=== PATIENT | male | born 1985 | race Caucasian/White ===

== ENCOUNTER 2019-06-02 14:44 | Emergency (ER) | payer MEDICAID, SELFPAY ==
[2019-06-02 14:45] VITALS: BP 163/85; PULSE 119; RESP 18; TEMP 36.4; O2SAT 100; BMI 23.1
--- NOTE | 2019-06-02 15:24 | EKG12_ITS ---
Test Reason : COUGH Blood Pressure : / mmHG Vent. Rate : 092 BPM Atrial Rate : 092 BPM P-R Int : 130 ms QRS Dur : 092 ms QT Int : 342 ms P-R-T Axes : 072 026 053 degrees QTc Int : 422 ms Normal sinus rhythm Normal ECG Confirmed by SERGIO GUTIERREZ, ROSALBA ([id number]), general expeditor NESTOR VACA ([id number]) on 06/04/2019 9:38:11 AM Referred By: BB Confirmed By:ROSALBA HILL MD
--- NOTE | 2019-06-02 15:25 | ED.DCSUM_ITS ---
History of Present Illness Chief Complaint: General Illness Informant: Patient Onset: Days - 4 Context: Gradual Onset Timing: Intermittent Quality: discomfort Location: mid-chest and throughout mid-abd Current Severity: Mild Maximum Severity: Moderate Worsened by: lying down. also gets it after exertion/activity. Relieved by: sitting up Associated Symptoms: nausea at times Narrative: Patient presents with symptoms he has had before. He states he is having lower abdominal discomfort, it is suprapubic and also throughout the middle of his abdomen up into his epigastrium. However now he is having chest discomfort with it as well. The upper abdominal discomfort and chest discomfort are present when he lies down supine. They go away when he sits up. He has them a little now. They are nonexertional nonpleuritic. Some occasional nausea. Feels a little short of breath when he lies down but that gets better when he sits up too. No coughing, no fevers, no recent travel out of the area, no known exposure to person infected with coronavirus. He has urinary frequency but no dysuria, discharge, hematuria. He states he has been drinking Gatorade lately but he does not think enough to justify the urinary frequency. He denies any pain in his back. No radiation of the chest discomfort into jaw, arms, or elsewhere. He is healthy and does not use drugs. He has had some nasal congestion. Past Medical History - Allergies and Home Meds Allergies/Adverse Reactions: Allergies No Known Allergies Allergy (Verified 06/02/19 14:47) Primary Care Physician: NOT,DEFINED [NON-STAFF] - Past Medical History: None Smoking Status: Current every day smoker Alcohol: None Drugs: None Review of Systems General: Denies: Chills, Fever, Sweats Eyes: Denies: Visual changes - bilaterally, Diplopia ENT: Reports: Rhinorrhea - And congestion. Denies: Bilateral ear pain, Sore throat Cardiovascular: Denies: Chest pain, Palpitations Respiratory: Reports: Dyspnea, Orthopnea. Denies: Cough, Dyspnea on exertion Gastrointestinal: Reports: Abdominal pain, Nausea. Denies: Vomiting, Diarrhea, Melena, Hematochezia Genitourinary: Reports: Frequency. Denies: Dysuria, Hematuria Musculoskeletal: Denies: Neck pain, Back pain, Swelling, Extremity Pain Skin: Denies: Rash, Wounds Neurological: Denies: Headache, Weakness, Numbness Physical Exam Vital Signs/Narrative: Vital Signs Temp Pulse Resp BP Pulse Ox 06/02/19 14:45 97.5 F L 119 H 18 163/85 H 100 Inital Vital Signs reviewed: Yes General: Well nourished, Well developed, No Acute Distress Head: Normocephalic, Atraumatic Eyes: Perrl, EOMI ENT: Moist mucous membranes, No rhinorrhea Neck: Supple, Nontender, No lymphadenopathy, No JVD Cardiovascular: Regular rate, Regular rhythm, No murmurs. Negative for: Tachycardia Respiratory: No distress, CTA bilaterally, Chest nontender Abdomen: Soft, Nondistended, Normal bowel sounds, Tender - mild, suprapubic and epigastric. Negative for: Guarding, Rebound tenderness Back: Nontender, Normal Inspection. Negative for: CVA tenderness Extremities: Nontender, No edema. Negative for: Calf Tenderness Skin: Normal color, No rash, No Trauma Neurological: Alert, Oriented x3, Cranial nerves II-XII grossly intact, Normal Strength, Normal Sensation, Normal Gait Psychological: Normal affect, Normal Mood Diagnostic/Tx/Re-eval Impressions Chest X-Ray 06/02/19 15:38 IMPRESSION: Normal x-ray examination of the chest. Electronically Signed: Ernesto Fung MD at 16:01 EDT , Service support , 06/02/19 15:38 Chest 1 View (Portable) [RAD] Stat Laboratory Results 06/02/19 06/02/19 15:51 16:05 Urine Color Yellow Urine Clarity Clear Urine pH 6.5 Ur Specific [place] 1.015 Urine Protein Negative Urine Glucose (UA) Normal Urine Ketones Negative Urine Occult Blood Negative Urine Nitrite Negative Urine Bilirubin Negative Urine Urobilinogen 1 H Ur Leukocyte Esterase Negative Urine RBC 0 SEEN Urine WBC 0 SEEN Ur Squamous Epith Cells 0 SEEN Urine Bacteria 0 SEEN Urine Mucus 0 SEEN POC Glucose 93 - Rhythm Strip Rhythm Strip: Sinus Rhythm Rate: 92 Ectopy: None - EKG Initial EKG Interpretation: Sinus Rhythm, No Acute Injury Pattern - Medical Decision Making GI cocktail helped his chest and abdominal discomfort, arguing for GI etiology. His work-up is normal. See above. I would recommend a PPI for 2 weeks and follow-up with his doctor, and I am okay with him going back to work. He is comfortable with that plan. ED Disposition - Plan for ED Patient: Disposition: Home or Assisted Living Diagnosis: Chest pain, non-cardiac, Epigastric pain, Urinary frequency Instructions: ED Chest Pain NonCardiac Prescriptions: Omeprazole 1 cap PO DAILY #14 capsule. Prescription Printed Referrals: Doctor,Your [STAFF PHYSICIAN] -
--- NOTE | 2019-06-02 15:34 | NURSING ---
NO OLD EKGS
--- NOTE | 2019-06-02 15:38 | RAD_ITS ---
STUDY: X-RAY CHEST REASON FOR EXAM: Male, 33 years old. chest pain with sob TECHNIQUE: AP portable view of the chest. COMPARISON: None. FINDINGS: There are monitoring devices. The lungs are clear and expanded. There is no demonstrated pleural abnormality. Normal size heart. Normal mediastinum and milly. Normal visualized pulmonary arteries. Normal visualized aortic arch and descending thoracic aorta. Normal visualized thoracic spine. Normal visualized ribs, clavicles, and shoulders. There is no demonstrated abnormality of the visualized soft tissue structures of the upper abdomen. RAD/Chest 1 View (Portable) IMPRESSION: Normal x-ray examination of the chest. Electronically Signed: Ernesto Fung MD at 16:01 EDT , Service support ,
[2019-06-02] MEDS: Mag Hydrox/Al Hydrox/Simeth 30 ML UDC PO (15:48)
[2019-06-02 15:52] VITALS: BP 133/90; PULSE 97; RESP 14; O2SAT 99
[2019-06-02 16:01] LABS: Bedside Glucose 93 mg/dL (70-110)
[2019-06-02 16:12] LABS: Bacteria 0 SEEN /hpf (None Seen); Color, Urine Yellow (Yellow); Glucose, Dipstick Normal (Normal); Ketone-Dipstick Negative (Negative); Leukocyte Esterase-Dipstick Negative /ul (Negative); Mucous, Urine 0 SEEN /hpf (<or=2+); Nitrite-Dipstick Negative (Negative); Occult Blood-Urine Negative /ul (Negative); Protein-Dipstick Negative (Negative); Red Blood Cells-Urine 0 SEEN /hpf (0-5); Specific Gravity, Urine 1.015 (1.002-1.030); Squamous Epithelial Cells - UA 0 SEEN /hpf (0-5); Urine Bilirubin Dipstick Negative (Negative); Urine Clarity Clear (Clear); Urine Urobilinogen 1 mg/dl (Normal); Urine pH 6.5 (5.0 - 8.0); White Blood Cells 0 SEEN /hpf (0-5)
[2019-06-02 17:22] VITALS: BP 130/68; PULSE 88; RESP 18; O2SAT 97
== END 2019-06-02 17:23 | disposition home or self-care (01) ==
PROVIDERS: Emergency Provider Emergency Medicine
DX: R07.89 Other chest pain (principal); R10.13 Epigastric pain; R35.0 Frequency of micturition; F17.200 Nicotine dependence, unspecified, uncomplicated
CPT/HCPCS: 71045; 81001; 82962; 93005; 99282; J7030; A4216

== ENCOUNTER 2019-07-16 23:36 | Emergency (ER) | payer MEDICAID, SELFPAY ==
--- NOTE | 2019-07-16 00:35 | RAD_ITS ---
HISTORY: SOB and Chest pain EXAMINATION/TECHNIQUE: XR Chest 1 View: Portable COMPARISON: 06/02/2019 FINDINGS: Cardiac telemetry leads in place. No significant change. Normal heart size. Lung volumes appear normal. No vascular congestion, pleural effusion, or acute pulmonary infiltration. No pneumothorax. Upper thoracic mild levoscoliosis. RAD/Chest 1 View (Portable) IMPRESSION: No acute cardiopulmonary disease. No significant interval change. at 0057 Reported and signed by: Cleve Gregorio MD Electronically Signed: Cleve Gregorio, at 0:56 EDT Tel , Service support ,
[2019-07-16 23:36] VITALS: BP 140/89; PULSE 92; RESP 16; TEMP 36.3; O2SAT 100; BMI 22.5
--- NOTE | 2019-07-16 23:56 | EKG12_ITS ---
Test Reason : SOB/CP Blood Pressure : / mmHG Vent. Rate : 084 BPM Atrial Rate : 084 BPM P-R Int : 142 ms QRS Dur : 096 ms QT Int : 360 ms P-R-T Axes : 080 059 052 degrees QTc Int : 425 ms Normal sinus rhythm Incomplete right bundle branch block Borderline ECG Confirmed by RAJAN BUENO ([id number]), assistant production editor WILL HARRIS ([id number]) on 07/21/2019 1:23:21 PM Referred By: DEMOND Confirmed By:RAJAN BUENO
--- NOTE | 2019-07-17 00:13 | ED.RN ---
NO OLD EKG
[2019-07-17] MEDS: Ketorolac 15 MG/ML Vial IV (00:23)
[2019-07-17] MEDS: 0.9% Normal Saline 1,000 ML 1000 ML IV ×2 (00:24→01:03)
[2019-07-17 00:28] VITALS: O2SAT 98
[2019-07-17 00:35] LABS: Absolute Neutrophil Count 2.5 X10^3/uL (2.0-7.7); Basophil# 0.03 X10^3/uL; Basophil% 0.5 % (0-1); Eosinophil# 0.08 X10^3/uL; Eosinophils% 1.5 % (0-5); Hemoglobin 14.9 g/dL (13.0-16.5); Mean Corp Hgb Conc 33.1 g/dL (32-36); Mean Corpuscular Hgb 29.6 pg (27.0-32.0); Mean Corpuscular Volume 89.3 fL (80-94); Mean Platelet Vol. 10.8 fl (6.2-12.0); Monocyte# 0.59 X10^3/uL; Monocyte% 10.8 % (0-10); NRBC Flagged by Analyzer 0 % (0-5); Neutrophil # 2.47 X10^3/uL (2.7-7.7); Platelet Count 152 K/mm3 (150-450); RBC Distribution Width CV 11.9 % (11.6-14.6); RBC Distribution Width SD 38.4 fl (35.1-43.9); Red Blood Count 5.04 M/mm3 (4.6-6.2); White Blood Count 5.5 K/mm3 (4.4-11.0)
[2019-07-17 00:46] LABS: D-Dimer Quantitative (DVT/PE) <= 0.27 FEU/ug/m (0.27-0.49)
[2019-07-17 00:53] LABS: Anion Gap 2 (5-15); BUN 7 mg/dL (7-18); BUN/Creat Ratio 7.8 RATIO (10-20); Chloride 105 mmol/L (98-107); EST Glomerular Filtration Rate 104 mL/min (>60); Est Glom Filt Rate - Afr Amer 126 mL/min (>60); Estimated Creatinine Clearance 137.34 ml/min; Glucose 85 mg/dL (74-106); Potassium 3.7 mmol/L (3.5-5.1); Sodium Level 140 mmol/L (136-145)
--- NOTE | 2019-07-17 00:55 | ED.DCSUM_ITS ---
- ER Visit Summary Date of Service: 07/17/19 Chief Complaint: Chest pain and shortness of breath History of Present Illness: The patient is a 33 M with no primary care physician. He reports he has chest pain shortness of breath began approximately 1 week ago. He reports that it is a constant dull pain with sharp episodes. Is 9 at 10 at worst and 5-10 currently. Is worsened by smoking. Is unchanged with exertion. Is relieved by warm shower, rubbing the area, or laying on his stomach. He denies fever or cough. Does report he is had chills. He states he is been wheezing. Is not have an inhaler that he uses. Patient denies any ankle swelling or calf pain. He has no personal or family history of DVT. Physical Examination: Vitals: Stable. Afebrile. General: Well-nourished and well-developed. Head: Normocephalic atraumatic. Neck: Supple, no lymphadenopathy. No JVD. Nontender. Cardiovascular: Regular rate and rhythm. No murmurs. Respiratory: No respiratory distress. Clear to auscultation bilaterally. Abdominal: Soft, nontender, nondistended, normal bowel sounds. No guarding, rebound, or peritoneal signs. Back: Nontender. Extremities: Nontender, no edema. Skin: Normal color, no rash. Neurologic: Alert and oriented ?3. Cranial nerves II through XII are intact. Normal strength and sensation. Psych: Normal affect. Test Results: EKG is sinus at [address] changes. It is unchanged from May of this year. Troponin is negative. D-dimer is negative. Chem-7 shows a CO2 33. CBC shows 7 neutrophils 45, lymphocytes 42, monocytes of 11. Chest x-ray shows no acute disease. There is no pneumothorax. Emergency Department Course and Treatment: Patient was given a liter of normal saline. He was given Toradol IV. He is resting comfortably. Treatment Plan: Patient will be discharged with symptomatic care. Use Tylenol and/or ibuprofen for pain. He is given a prescription for an albuterol MDI. Instructed to follow-up with Dr. Camargo in 3 to 5 days if not improving. Return to the emergency department for any worsening symptoms. Disposition: To home in improved and stable condition. Impression: 1. Atypical chest pain. 2. Tobacco abuse. This note was generated with [employer] software. It may contain incorrect words, spelling, and punctuation that were not noted in review of the chart jamey or to signing ED Disposition - Plan for ED Patient: Instructions: ED Chest Pain Atypical Unkn Cause Prescriptions: Albuterol Inhaler [Ventolin Hfa] 2 puff INHALATION Q4H PRN PRN #1 inhaler PRN Reason: Wheezing Referrals: Cole Camargo MD [STAFF PHYSICIAN] - 3-5 Days if not improving
[2019-07-17 01:27] VITALS: BP 121/79; PULSE 69; RESP 12; O2SAT 100
[2019-07-17 01:47] VITALS: BP 128/80; PULSE 62; RESP 13; O2SAT 100
== END 2019-07-17 02:00 | disposition home or self-care (01) ==
LOC: ED 07-17 00:58
PROVIDERS: Emergency Provider Emergency Medicine
DX: R07.89 Other chest pain (principal); F17.200 Nicotine dependence, unspecified, uncomplicated
CPT/HCPCS: 71045; 80048; 84484; 85025; 85379; 93005; 96361; 96374; 99284; J7030

== ENCOUNTER 2019-10-12 18:59 | Emergency (ER) | payer MEDICAID, SELFPAY ==
[2019-10-12 19:00] VITALS: BP 145/96; PULSE 92; RESP 16; TEMP 36.9; O2SAT 98; BMI 23.9
--- NOTE | 2019-10-12 19:05 | ED.VIS.GEN ---
History of Present Illness Chief Complaint: Abscess Informant: Patient Narrative: 34-year-old male presents with left upper axillary pain that radiates into his pectoralis muscle. He states he has had this for years. It comes and goes. He states it does not radiate internally. 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 It seems to be worse when he is doing this. He does not have any cardiac history. He states he was seen and evaluated the last time he had this issue and had a normal work-up. Patient also states that he does not have a PCP. Past Medical History - Allergies and Home Meds Allergies/Adverse Reactions: Allergies No Known Allergies Allergy (Verified 10/12/19 19:00) Primary Care Physician: Care Physician,No Primary [Primary Care Provider] - Smoking Status: Current every day smoker Review of Systems General: Denies: Chills, Fever, Sweats Eyes: Denies: Visual changes - bilaterally, Diplopia ENT: Denies: Rhinorrhea, Sore throat Cardiovascular: Reports: Chest pain. Denies: Palpitations Genitourinary: Denies: Dysuria Musculoskeletal: Reports: Myalgias Skin: Denies: Rash, Abscess Neurological: Denies: Headache, Weakness Psych: Denies: Depression, Anxiety Physical Exam Vital Signs/Narrative: Vital Signs Temp Pulse Resp BP Pulse Ox 10/12/19 19:00 98.4 F 92 16 145/96 H 98 Inital Vital Signs reviewed: Yes General: Well nourished, No Acute Distress Head: Normocephalic, Atraumatic Eyes: Perrl, EOMI ENT: Moist mucous membranes Cardiovascular: Regular rate, Regular rhythm, - - There is some tenderness to palpation over the lateral aspect of the pectoralis muscle into the axillary region. This is reproducible by palpation and by ranging the left shoulder. There is no abscess. There is no lymphadenopathy. There is no erythema or induration. The pectoralis muscles look symmetric bilaterally. Respiratory: No distress, CTA bilaterally Abdomen: Soft Back: Nontender Skin: Normal color, No rash Neurological: Alert, Oriented x3 Psychological: Normal affect Diagnostic/Tx/Re-eval - Medical Decision Making Patient presents with tightness in the left upper shoulder he appears to have a pectoralis sprain likely from lifting up crates over his head at work. I do not believe that patient is having any cardiac chest pain. Patient is counseled to my is lifting this way or to get 2 people to help lift. Patient is also given Naprosyn and Flexeril for home. Patient was counseled he should establish with a PCP for regular healthcare maintenance. He acknowledged understanding. Patient stable discharge. Impression: 1. Pectoralis strain ED Disposition - Plan for ED Patient: Disposition: Home or Assisted Living Instructions: ED Strain Muscle Ext Prescriptions: Cyclobenzaprine HCl 10 mg PO TID PRN PRN #30 tab PRN Reason: Spasms Prescription Printed Naproxen 500 mg PO BID #30 tab Prescription Printed Referrals: Care Physician,No Primary [Primary Care Provider] -
== END 2019-10-12 20:17 | disposition home or self-care (01) ==
PROVIDERS: Emergency Provider Student in an Organized Health Care Education/Training Program
DX: S29.011A Strain of muscle and tendon of front wall of thorax, initial encounter (principal); X58.XXXA Exposure to other specified factors, initial encounter; Y93.9 Activity, unspecified; Y92.9 Unspecified place or not applicable; F17.200 Nicotine dependence, unspecified, uncomplicated
CPT/HCPCS: 99282

== ENCOUNTER 2020-04-10 16:10 | Emergency (ER) | payer MEDICAID, SELFPAY ==
[2020-04-10 16:12] VITALS: BP 138/89; PULSE 96; RESP 16; TEMP 35.8; O2SAT 95; BMI 23.7
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
--- NOTE | 2020-04-10 17:36 | ED.RN ---
LET applied to right great toe at 1735.
--- NOTE | 2020-04-10 18:20 | ED.DEP ---
ED Disposition - Plan for ED Patient: Disposition: Home or Assisted Living Instructions: ED Detached Fingernail or Toenail Prescriptions: Cephalexin [Keflex] 500 mg PO Q6 #30 cap Prescription Printed Referrals: Maik Michelle DPM [STAFF PHYSICIAN] - 3-5 Days if not improving Additional Instructions: Keflex antibiotic 1 pill 4 times a day for 1 week. This appears to be an early infection of the soft tissue. Warm soaks to the area. If not improving follow-up with the senior procurement manager Dr. Maik Michelle Tylenol and Motrin for pain
[2020-04-10] MEDS: Lidocaine 1% (20 ml mdv) 20 ML Vial 10 ML INFILT (18:39)
[2020-04-10] MEDS: Cephalexin 250 MG Capsule 500 MG PO (18:39)
--- NOTE | 2020-04-10 18:41 | ED.RN ---
DISCHARGE INSTRUCTIONS GIVEN TO AND REVIEWED WITH PATIENT, PATIENT DENIES QUESTIONS OR CONCERNS AND VOICES UNDERSTANDING OF DISCHARGE INSTRUCTIONS. PT AMBULATES OUT OF ROOM WITHOUT DIFFICULTY.
== END 2020-04-10 18:41 | disposition home or self-care (01) ==
PROVIDERS: Emergency Provider Emergency Medicine
DX: S91.211A Laceration without foreign body of right great toe with damage to nail, initial encounter (principal); V86.95XA Unspecified occupant of 3- or 4- wheeled all-terrain vehicle (ATV) injured in nontraffic accident, initial encounter; Y93.I9 Activity, other involving external motion; Y92.9 Unspecified place or not applicable; Y99.8 Other external cause status; Z72.0 Tobacco use
CPT/HCPCS: 11750; 99283

== ENCOUNTER 2021-02-18 13:43 | Emergency (ER) | payer MEDICAID, SELFPAY ==
[2021-02-18 13:43] VITALS: BP 139/77; PULSE 79; RESP 18; TEMP 36.3; O2SAT 96; BMI 24.4
--- NOTE | 2021-02-18 14:06 | EDS_ITS ---
HPI History of Present Illness Chief Complaint: Other, Pain/Inj Detail of Chief Complaint: Left chest pain and left arm numbness and tingling Informant: patient Narrative Narrative: Patient presents to the emergency department chief complaint of chest discomfort started initially 5 days ago. Patient also states that he had some numbness and tingling in his left arm. Patient for several days had some numbness and tingling in his left hand and arm intermittently. He denies any paresthesias currently. Patient still has some discomfort in his left chest that he describes as a bulge. Patient states he has had similar sensations for years off and on. Only rates pain a 7 out of 10. Patient tells me had Covid about 2 and half months ago and recovered uneventfully. No history of PE or DVT. No family history of heart disease. Prior similar symptoms: Yes PFSH PFSH Medical History no medical history Home Medications naproxen 500 mg PO BID #14 tab 02/18/21 [Rx Last Taken Unknown] Allergy/AdvReac Type Severity Reaction Status Date / Time No Known Allergies Allergy Verified 02/18/21 13:45 Social History Smoking Status: Current every day smoker tobacco type: cigarettes ROS ROS ED Constitutional Constitutional ED: Reports systems reviewed and no addt'l complaints, except as documented; Denies body ache(s), change in weight or chills Eyes Eyes: Denies acute decrease in peripheral vision, change in vision, double vision or loss of vision ENT ENT ED: Reports none; Denies ear pain, lip swelling, loss taste/smell, neck pain, otalgia or sore throat Cardiovascular Cardiovascular: Reports none, chest pain and racing heartbeat; Denies abdominal pain, chest pain with activity, leg edema, lightheadedness, palpitations, rapid heart rate or syncope Respiratory/Chest Respiratory/Chest: Reports none; Denies change in mental status, dry cough, dyspnea, hemoptysis, shortness of breath at rest or shortness of breath with exertion Gastrointestinal Gastrointestinal: Reports none; Denies abdominal pain, change in stool character, diarrhea, hematemesis, hematochezia, melena, rectal bleeding or vomiting Genitourinary Genitourinary ED: Reports none; Denies abdominal discomfort, anuria, dysuria, genital pain or polyuria Musculoskeletal Musculoskeletal: Reports none; Denies arthralgias, back pain, difficulty walking, extremity pain, muscle weakness or myalgias Integumentary Reports none; Denies abscess or rash Neurologic Neurologic: Reports none and paresthesias; Denies abnormal gait, confusion, focal weakness, frequent falls, headache(s), loss of vision, numbness, radicular pain, vertigo or weakness Psychiatric Psychiatric: Reports systems reviewed and no addt'l complaints, except as documented and none; Denies behavioral changes, confusion, difficulty concentrating, hallucinations, suicidal ideation, tactile hallucinations or visual hallucinations Endocrine Endocrinology: Denies none, cold intolerance, excessive sweating, fatigue or heat intolerance Hematologic/Lymphatic Hematologic/Lymphatic: Reports none; Denies anemia, easy bleeding or easy bruising Allergic/Immunologic Allergic/Immunologic ED: Denies as per HPI, none, lip swelling, mouth swelling, throat swelling, tongue swelling or hives EXAM Physical Exam Const Vital Signs: 02/18/21 13:43 02/18/21 14:31 02/18/21 14:41 Temperature 97.4 F L Temperature Source Temporal Pulse Rate 79 76 Respiratory Rate 18 16 Respiratory Effort Normal Non-Labored Respiratory Pattern Normal Blood Pressure 139/77 H 121/78 H Blood Pressure Mean 97 92 Pulse Ox 96 98 Oxygen Delivery Method Room Air Room Air Positive well nourished and well developed General Appearance ED: well developed and NAD HEENT Reports TM's clear and moist mucous membranes normocephalic and atraumatic; Negative for trauma or tenderness Tympanic Membrane ED: Yes TM's clear Eyes PERRL and EOMs intact bilaterally General Eye ED: Negative for pale conjunctiva or scleral icterus Neck no lymphadenopathy, supple and no JVD General: Negative for tenderness Chest Wall palpation of chest normal Chest Narrative: Mild tenderness over the left upper anterior chest wall without any masses palpated. There is no evidence of cellulitis. There is no soft emp hysema or crepitus noted. Palpation does somewhat reproduce his pain. Chest: Negative for tenderness Resp normal respiratory effort and clear to auscultation bilaterally Effort and Inspection: Negative for respiratory distress or pain with movement Auscultation: Negative for rhonchi, wheezes or diminished lung sounds Cardio regular rate, regular rhythm, S1 normal heart sound, S2 normal heart sound and no murmurs Peripheral Pulses: pulses 2+ throughout GI normal to inspection, nondistended, normoactive bowel sounds, soft to palpation, non-tender, non-distended and no masses Back/Spine no CVA tenderness and no thoracic nor lumbar tenderness Extremity normal to inspection General Extremety ED: Negative for edema General Extremity: Negative for edema Neuro oriented x3, CN's II-XII intact bilaterally, no sensory deficits noted and gait normal Sensorium / Orientation: awake, alert, oriented to person, oriented to place and oriented to time Motor Exam: strength 5/5 throughout and strength abnormal Psych mental status grossly normal Skin no rashes or lesions noted and no wounds MDM MDM MDM Narrative Medical decision making narrative: IV line established on arrival. Patient placed on a classroom monitor. Lab work-up unremarkable. At this point I suspect his chest discomfort and left arm paresthesias likely musculoskeletal. Patient's heart score is a 0. Patient will be given a prescription for naproxen. He is advised to avoid heavy lifting or repetitive motions with his left arm. 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 Lab Data Attestation: I reviewed the patient's lab results. Labs: Laboratory Results - last 24 hr 02/18/21 02/18/21 02/18/21 14:20 14:20 14:20 WBC 4.6 RBC 4.77 Hgb 14.2 Hct 43.5 MCV 91.2 MCH 29.8 MCHC 32.6 RDW Std Deviation 40.9 RDW Coeff of Susy 12.2 Plt Count 146 L MPV 11.0 Immature Gran % (Auto) 0.000 Neut % (Auto) 48.2 Lymph % (Auto) 38.4 Howard % (Auto) 10.6 H Eos % (Auto) 2.4 Baso % (Auto) 0.4 Absolute Neuts (auto) 2.2 Absolute Lymphs (auto) 1.77 Nucleated RBC % 0 D-Dimer Quant (PE/DVT) <= 0.27 Sodium 141 Potassium 3.8 Chloride 107 Carbon Dioxide 32.0 Anion Gap 2 L BUN 13 Creatinine 0.90 Estim Creat Clear Calc 131.93 Est GFR (MDRD) Af Amer 125 Est GFR (MDRD) Non-Af 103 BUN/Creatinine Ratio 14.5 Glucose 69 L Calcium 9.1 Troponin I High Sens 3 Radiography Chest X-Ray - ED: 1 View Diagnostic Testing: Clinical Impression(s) from Imaging Studies Chest X-Ray 02/18/21 14:30 IMPRESSION: Normal x-ray examination of the chest. Electronically Signed: Kt Peters MD at 14:56 EST , Service support , 1 view chest x-ray obtained interpreted by myself as no acute disease process. Radiology in agreement. EKG Initial EKG: Attestation: I personally reviewed and interpreted this EKG as follows: Comments: Sinus rhythm with ventricular rate of 77 bpm with no acute ST segment changes. Discharge Plan Triage Chief Complaint: Other, Pain/Inj ED Provider: Albino Merchant Dx/Rx/DC Orders Clinical Impression: Chest pain Instructions: ED Chest Pain, Uncertain Cause Prescriptions: New naproxen 500 MG tablet 500 mg PO BID Qty: 14 RF: 0 Primary Care Provider: Care Physician,No Primary Referrals: Patrice Tierney MD [STAFF PHYSICIAN] - 3-5 Days Care Physician,No Primary [Primary Care Provider] - Disposition Disposition: Home, Self Care
--- NOTE | 2021-02-18 14:06 | EKG12_ITS ---
Test Reason : PAIN Blood Pressure : / mmHG Vent. Rate : 077 BPM Atrial Rate : 077 BPM P-R Int : 122 ms QRS Dur : 100 ms QT Int : 360 ms P-R-T Axes : 059 046 053 degrees QTc Int : 407 ms Normal sinus rhythm Normal ECG Confirmed by SERGIO GUTIERREZ, ROSALBA ([id number]), makeup editor JOAO GUTIERREZ ([id number]) on 02/21/2021 10:48:00 AM Referred By: RU Confirmed By:ROSALBA HILL MD
[2021-02-18] MEDS: 0.9% Normal Saline 1,000 ML 150 ML IV (14:28)
[2021-02-18 14:30] LABS: Absolute Lymphocyte Count 1.77 X10^3/uL (0.83-4.51); Absolute Neutrophil Count 2.2 X10^3/uL (2.0-7.7); Basophil# 0.02 X10^3/uL; Basophil% 0.4 % (0-1); Eosinophil# 0.11 X10^3/uL; Eosinophils% 2.4 % (0-5); Hematocrit 43.5 % (40-54); Hemoglobin 14.2 g/dL (13.0-16.5); Lymphocyte # 1.77 X10^3/ul (0.83-4.51); Lymphocyte % 38.4 % (19-41); Mean Corp Hgb Conc 32.6 g/dL (32-36); Mean Corpuscular Hgb 29.8 pg (27.0-32.0); Mean Corpuscular Volume 91.2 fL (80-94); Monocyte# 0.49 X10^3/uL; Monocyte% 10.6 % (0-10); NRBC Flagged by Analyzer 0 % (0-5); Neutrophil # 2.22 X10^3/uL (2.7-7.7); Neutrophil % 48.2 % (47-70); Platelet Count 146 K/mm3 (150-450); RBC Distribution Width CV 12.2 % (11.6-14.6); RBC Distribution Width SD 40.9 fl (35.1-43.9); Red Blood Count 4.77 M/mm3 (4.6-6.2); White Blood Count 4.6 K/mm3 (4.4-11.0)
--- NOTE | 2021-02-18 14:30 | RAD_ITS ---
STUDY: X-RAY CHEST REASON FOR EXAM: Male, 35 years old. Chest pain TECHNIQUE: Single AP portable view of the chest. COMPARISON: Comparison is made with prior study dated 07/17/2019. FINDINGS: EKG electrodes are seen. The lungs are clear and expanded. There is no demonstrated pleural abnormality. Normal size heart. Normal mediastinum and milly. Normal visualized pulmonary arteries. Normal visualized aortic arch and descending thoracic aorta. Normal visualized thoracic spine. Normal visualized ribs, clavicles, and shoulders. There is no demonstrated abnormality of the visualized soft tissue structures of the upper abdomen. RAD/Chest 1 View (Portable) IMPRESSION: Normal x-ray examination of the chest. Electronically Signed: Kt Peters MD at 14:56 EST , Service support ,
[2021-02-18 14:41] VITALS: BP 121/78; PULSE 76; RESP 16; O2SAT 98
[2021-02-18 14:50] LABS: Anion Gap 2 (5-15); BUN 13 mg/dL (7-18); BUN/Creat Ratio 14.5 RATIO (10-20); Calcium,Total 9.1 mg/dL (8.5-10.1); Chloride 107 mmol/L (98-107); D-Dimer Quantitative (DVT/PE) <= 0.27 FEU/ug/m (0.27-0.49); EST Glomerular Filtration Rate 103 mL/min (>60); Est Glom Filt Rate - Afr Amer 125 mL/min (>60); Estimated Creatinine Clearance 131.93 ml/min; Glucose 69 mg/dL (74-106); Potassium 3.8 mmol/L (3.5-5.1); Sodium Level 141 mmol/L (136-145); Troponin-I HS 3 pg/mL (3.0-78.0)
[2021-02-18 15:17] VITALS: BP 120/78; PULSE 72; RESP 18; O2SAT 99
== END 2021-02-18 15:17 | disposition home or self-care (01) ==
PROVIDERS: Emergency Provider Emergency Medicine
DX: R07.9 Chest pain, unspecified (principal); R20.2 Paresthesia of skin; F17.210 Nicotine dependence, cigarettes, uncomplicated
CPT/HCPCS: 71045; 80048; 84484; 85025; 85379; 93005; 99284; A4216

== ENCOUNTER 2022-04-29 13:58 | Emergency (ER) | payer MEDICAID, SELFPAY ==
[2022-04-29 14:00] VITALS: BP 133/90; PULSE 90; RESP 16; TEMP 36.1; O2SAT 98; BMI 25.0
--- NOTE | 2022-04-29 14:21 | EDS_ITS ---
HPI <MARGO Baptiste - Last Filed: 04/29/22 14:28> History of Present Illness Chief Complaint: General Illness Narrative Narrative: 36-year-old male with no significant medical history who presents to the emergency department with multiple red bumps that appear on his body and then disappear over the last 6 months. 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 Patient states that they come and go however sometimes the redness stays for multiple weeks. Patient denies any infectious-like symptoms such as fever or chills. Patient has no history of any STD, patient is not a IV drug abuser. PFSH <MARGO Baptiste - Last Filed: 04/29/22 14:28> [facility] Medical History no medical history Home Medications NK 04/29/22 [History Last Taken Unknown] Allergy/AdvReac Type Severity Reaction Status Date / Time No Known Allergies Allergy Verified 04/29/22 13:59 Family History no significant family his Surgical History no surgical history Social History Smoking Status: Current every day smoker tobacco type: cigarettes ROS <MARGO Baptiste - Last Filed: 04/29/22 14:28> ROS ED ROS Narrative Constitutional: Negative for fever, chills, weight loss, weakness Eyes: Negative for vision loss, vision change, double vision ENT: Negative for any sore throat, ear pain, congestion Cardiovascular: Negative for any chest pain, tightness, palpitations Respiratory: Negative for any cough, sputum production, hemoptysis, dyspnea, dyspnea on exertion, orthopnea Gastrointestinal: Negative for any abdominal pain, nausea, vomiting, diarrhea, constipation, blood in stool, blood in vomit : Negative for any urinary frequency, dysuria, retention, blood in urine Muscle skeletal: Negative for any muscle joint pain, stiffness, myalgias, arthralgias, neck pain, back pain Neurological: Negative for any headache, syncope, numbness or tingling, dizziness Skin: Negative for any rashes, itching, abrasions, lacerations. Positive for intermittent areas of redness, lumps, Psychiatric: Negative for any depression, anxiety, stress, suicidal ideation, homicidal ideation Hematologic: Negative for any easy bruising, excessive bruising, easy bleeding Allergies: Negative for any eczema, hives, rash EXAM <MARGO Baptiste - Last Filed: 04/29/22 14:28> Physical Exam Narrative Exam Narrative: Vital signs reviewed. HEET: Head normocephalic atraumatic, TMs clear bilaterally. Posterior pharynx is clear, moist mucous membranes. Nares clear bilaterally. Neck: Supple with no lymphadenopathy or tenderness. No signs of meningismus, negative jolt sign. Cardiac: Regular rate and rhythm no murmurs gallops or rubs, equal peripheral pulses bilaterally. Respiratory: Lungs clear to auscultation bilaterally. No chest tenderness. Abdomen: Soft, nontender, nondistended. No abdominal bruit or pulsatile masses. No hepatosplenomegaly Extremities: No peripheral edema, no signs of gross trauma or deformity. Active full range of motion of all extremities. Neuro: Cranial nerves II through XII intact, no focal neurological deficits. Skin: Clean dry and intact with no rash, purpura, petechiae, vesicles or pustules. Patient what appears to be possible acne, pimples. There is no signs or symptoms of gross infection, deep tissue infection, abscess formation. Backs/flank: No CVA tenderness, no midline spinal tenderness, no deformity. Psych: Normal mood and affect. No SI, HI or acute psychosis. Const Vital Signs: 04/29/22 14:00 Temperature 97.0 F L Temperature Source Temporal Pulse Rate 90 Respiratory Rate 16 Blood Pressure 133/90 H Blood Pressure Mean 104 Pulse Ox 98 Oxygen Delivery Method Room Air Positive well nourished and well developed General Appearance ED: well developed <Compa Gonsales MD - Last Filed: 04/29/22 16:30> Physical Exam Const Vital Signs: 04/29/22 14:00 Temperature 97.0 F L Temperature Source Temporal Pulse Rate 90 Respiratory Rate 16 Blood Pressure 133/90 H Blood Pressure Mean 104 Pulse Ox 98 Oxygen Delivery Method Room Air MDM <MARGO Baptiste - Last Filed: 04/29/22 14:28> MDM Treatment and Re-Evaluation Narrative: Patient appears generally well. Patient is in no distress. Patient presents the emergency department with multiple lumps on his body that been ongoing for the last 6 months. Patient's physical examination is consistent with pimples. There is no evidence of suspect any abscess, rash. Differential diagnosis is abscess formation, cellulitis, contact dermatitis. However this does not look to be allergic, this appears to be pimple/acne. Patient will not be treated with any antibiotics. I did explain this to the patient. He will follow-up with dermatology. Patient is happy the plan of care. He instructed return for any worsening symptoms <Compa Gonsales MD - Last Filed: 04/29/22 16:30> [facility] Narrative Medical decision making narrative: I have personally performed a face to face assessment of the patient and have reviewed the NITHIN Note. I performed a substantive portion of the visit including all aspects of the following. My coleman findings include: History is bumps on scalp, bilateral inner thighs, and back x6 months, different areas, waxing and waning. Exam is afebrile. Vital signs noted. Nontoxic-appearing. Multiple areas of, domes and pimples in different stages of healing on back, scalp, and bilateral inner thighs, and outer. Medical Decision Making reassurance. Warm compresses. I do not feel antibiotics are indicated currently as most of the areas are isolated. Follow- up dermatology as needed. Other additions or changes: [None] Discharge Plan Triage Chief Complaint: General Illness ED Midlevel Provider: Gennaro Jackson ED Provider: Compa Gonsales Dx/Rx/DC Orders Clinical Impression: Acne, Skin pimple Instructions: Adult Acne Prescriptions: No Action NK Primary Care Provider: Care Physician,No Primary Referrals: Gauri Frazier MD [Non-Staff] - Care Physician,No Primary [Primary Care Provider] - Activity Restrictions/Additional Instructions: Please follow-up. Disposition Disposition: Home, Self Care Discharge Date/Time: 04/29/22 14:51
== END 2022-04-29 14:51 | disposition home or self-care (01) ==
LOC: ED 14:33
PROVIDERS: Emergency Provider Emergency Medicine; Visit Provider Emergency Medicine
DX: L70.9 Acne, unspecified (principal); F17.210 Nicotine dependence, cigarettes, uncomplicated
CPT/HCPCS: 99283

== ENCOUNTER 2022-05-22 12:13 | Emergency (ER) | payer MEDICAID, SELFPAY ==
[2022-05-22 12:13] VITALS: BP 142/96; PULSE 108; RESP 14; TEMP 36.9; O2SAT 99; BMI 23.7
[2022-05-22 12:22] VITALS: BP 133/89; PULSE 94; RESP 15; O2SAT 97
--- NOTE | 2022-05-22 12:37 | EX.ED.DYSGE1 ---
HPI History of Present Illness Chief Complaint: Syncope Informant: patient Onset/Context/Timing Onset: Today Context: Sudden Onset Timing: Intermittent and Lasts (Approximately 5 minutes) Quality: Lightheaded, short of breath Location: Generalized Worsened by: Nothing Relieved by: Nothing Narrative Narrative: Patient presents with a syncopal episode that occurred today. Patient states he was putting his contacts and while he was getting ready for work when he passed out. Patient states he felt lightheaded and short of breath prior to passing out. Patient states he was out for approximately 5 minutes. Patient states he woke up on the floor. Patient states he has been having some pain in his left axilla. Patient denies any chest pain. Patient admits to nausea but denies any vomiting. Patient denies any palpitations. PFSH PFSH Medical History no medical history no medical history Home Medications NK 04/29/22 [History Last Taken Unknown] Allergy/AdvReac Type Severity Reaction Status Date / Time No Known Allergies Allergy Verified 05/22/22 12:27 Surgical History no surgical history no surgical history Social History Smoking Status: Current every day smoker tobacco type: cigarettes ROS ROS ED Constitutional Constitutional ED: Denies chills or fever(s) Eyes Eyes: Reports blurry vision; Denies change in vision ENT ENT ED: Denies rhinorrhea or sore throat Cardiovascular Cardiovascular: Denies chest pain or palpitations Respiratory/Chest Respiratory/Chest: Reports dyspnea; Denies cough Gastrointestinal Gastrointestinal: Reports nausea; Denies vomiting Genitourinary Genitourinary ED: Denies dysuria or hematuria Musculoskeletal Musculoskeletal: Denies back pain or neck pain Integumentary Denies abscess or rash Neurologic Neurologic: Denies headache(s) or weakness Allergic/Immunologic Allergic/Immunologic ED: Denies mouth swelling or urticaria EXAM Physical Exam Const Vital Signs: 05/22/22 12:13 05/22/22 12:22 05/22/22 12:23 Temperature 98.4 F Temperature Source Temporal Pulse Rate 108 H 94 Pulse Rate [Lying] Pulse Rate [Sitting (for 1 minute prior to obtaining)] Pulse Rate [Standing (for 1 minute prior to obtaining)] Respiratory Rate 14 15 Respiratory Effort Normal Non-Labored Respiratory Pattern Normal Blood Pressure 142/96 H 133/89 H Blood Pressure [Lying] Blood Pressure [Sitting (for 1 minute prior to obtaining)] Blood Pressure [Standing (for 1 minute prior to obtaining)] Blood Pressure Mean 111 103 Blood Pressure Mean [Lying] Blood Pressure Mean [Sitting (for 1 minute prior to obtaining)] Blood Pressure Mean [Standing (for 1 minute prior to obtaining)] Pulse Ox 99 97 Oxygen Delivery Method Room Air Room Air 05/22/22 14:09 05/22/22 14:17 05/22/22 15:10 Temperature Temperature Source Pulse Rate 19 L Pulse Rate [Lying] 69 Pulse Rate [Sitting (for 1 minute prior to obtaining)] 67 Pulse Rate [Standing (for 1 minute prior to obtaining)] 92 Respiratory Rate 73 H Respiratory Effort Respiratory Pattern Blood Pressure 122/88 H Blood Pressure [Lying] 132/75 H Blood Pressure [Sitting (for 1 minute prior to obtaining)] 133/88 H Blood Pressure [Standing (for 1 minute prior to obtaining)] 131/95 H Blood Pressure Mean 99 Blood Pressure Mean [Lying] 94 Blood Pressure Mean [Sitting (for 1 minute prior to obtaining)] 103 Blood Pressure Mean [Standing (for 1 minute prior to obtaining)] 107 Pulse Ox Oxygen Delivery Method Room Air 05/22/22 16:26 Temperature Temperature Source Pulse Rate 66 Pulse Rate [Lying] Pulse Rate [Sitting (for 1 minute prior to obtaining)] Pulse Rate [Standing (for 1 minute prior to obtaining)] Respiratory Rate 14 Respiratory Effort Respiratory Pattern Blood Pressure 128/78 H Blood Pressure [Lying] Blood Pressure [Sitting (for 1 minute prior to obtaining)] Blood Pressure [Standing (for 1 minute prior to obtaining)] Blood Pressure Mean 94 Blood Pressure Mean [Lying] Blood Pressure Mean [Sitting (for 1 minute prior to obtaining)] Blood Pressure Mean [Standing (for 1 minute prior to obtaining)] Pulse Ox 97 Oxygen Delivery Method Room Air Positive well nourished and well developed General Appearance ED: well developed HEENT Reports moist mucous membranes Neck supple and no JVD Resp normal respiratory effort and clear to auscultation bilaterally Cardio regular rate, regular rhythm and no murmurs GI normal to inspection, nondistended, normoactive bowel sounds and non-tender Palpation: soft Extremity normal to inspection General Extremety ED: Negative for edema or tenderness General Extremity: Negative for edema Neuro oriented x3, CN's II-XII intact bilaterally and no sensory deficits noted Sensorium / Orientation: alert Motor Exam: strength 5/5 throughout Psych mental status grossly normal Skin no rashes or lesions noted MDM MDM MDM Narrative Medical decision making narrative: Differential diagnosis includes cardiac ischemia, cardiac dysrhythmia, vasovagal syncope, dehydration, and electrolyte abnormality. EKG will be obtained to assess for cardiac dysrhythmia and cardiac ischemia. CBC will be obtained to assess for leukocytosis and anemia. Basic metabolic profile will be obtained to assess for electrolyte abnormality and renal function. High-sensitivity troponin will be obtained to assess for cardiac ischemia. 2-hour repeat high-sensitivity troponin will be obtained to assess for ongoing cardiac ischemia. Chest x-ray will be obtained to assess for pneumonia and pneumothorax. Lab Data Attestation: I reviewed the patient's lab results. Lab results narrative: CBC was reviewed and was within normal limits. Basic metabolic profile was reviewed and was within normal limits. Initial high-sensitivity troponin was reviewed and was normal at 3. 2-hour repeat high-sensitivity troponin was reviewed and was normal at 3. Labs: Laboratory Results - last 24 hr 05/22/22 05/22/22 05/22/22 14:10 14:10 16:30 WBC 5.8 RBC 5.51 Hgb 16.0 Hct 49.6 MCV 90.0 MCH 29.0 MCHC 32.3 RDW Std Deviation 39.6 RDW Coeff of Susy 11.9 Plt Count 177 MPV 11.3 Immature Gran % (Auto) 0.300 Neut % (Auto) 65.2 Lymph % (Auto) 23.4 [place] % (Auto) 8.0 Eos % (Auto) 2.4 Baso % (Auto) 0.7 Absolute Neuts (auto) 3.8 Absolute Lymphs (auto) 1.35 Nucleated RBC % 0 Sodium 140 Potassium 4.2 Chloride 105 Carbon Dioxide 32.0 Anion Gap 3 L BUN 7 Creatinine 0.80 Estim Creat Clear Calc 151.27 Est GFR (MDRD) Af Amer 141 Est GFR (MDRD) Non-Af 116 BUN/Creatinine Ratio 8.7 L Glucose 110 H Calcium 9.6 Troponin I High Sens 3 3 Radiography Diagnostic Testing: Clinical Impression(s) from Imaging Studies Chest X-Ray 05/22/22 14:13 IMPRESSION: Normal x-ray examination of the chest. Electronically Signed: Kt Peters MD at 14:31 EDT , Portable 1 view chest x-ray was obtained. On my independent interpretation, lung andrade are clear. There is normal cardiac silhouette. Bony thorax is normal. There is no acute process noted. Radiologist also interpreted the x-ray and agrees. EKG Initial EKG: Attestation: I personally reviewed and interpreted this EKG as follows: Interpretation: Sinus Rhythm (67) and No Acute Injury Pattern Comments: EKG was obtained. On my independent interpretation, it showed a normal sinus rhythm with a rate of 67. [place] interval, QRS interval, and QTc intervals were all normal. [place] was normal. There are no acute ST or T wave changes. Prior EKG tracings: available for review Prior: Unchanged (02/18/2021) Treatment and Re-Evaluation :: Patient was given aspirin here. Smoking cessation was discussed. Patient was advised of his findings. Patient is feeling better on reevaluation. Patient was instructed to follow-up with his primary care physician in 5 to 7 days. Patient was advised that he may need further outpatient testing to determine the cause of his syncope. Patient understands and is agreeable with the plan. All questions were answered. Discharge Plan Triage Chief Complaint: Syncope ED Provider: Patrice Pedroza Dx/Rx/DC Orders Clinical Impression: Syncope and collapse, Tobacco use Instructions: ED Fainting, Uncertain Cause Prescriptions: No Action NK Primary Care Provider: Care Physician,No Primary Referrals: Cole Camargo MD [Med Staff - Foundation Stage Teacher] - 5-7 Days Care Physician,No Primary [Primary Care Provider] - Disposition Disposition: Home, Self Care
--- NOTE | 2022-05-22 13:14 | CM.ED ---
Social Work Note Referral Source: Case Find Referral Reason: no PCP SW met with patient and introduced herself and role as [facility] Shoe Fitter. Patient was seated on hospital bed and agreeable to speak with SW. SW inquired about patient's insurance and current PCP. Patient verified insurance and reported having a PCP at [facility], however, he has only seen that PCP once. SW inquired about his interest in a list of PCPs, patient reported being interested. SW provided patient with a list of PCPs accepting new patients in [place] in network with his insurance. Patient was receptive towards list and voices no other needs at this time. SW remains available if needs arise. Rozina Moran COMMUNICATIONS TOWER CLIMBER, ANGELINE
--- NOTE | 2022-05-22 13:45 | EKG12_ITS ---
Test Reason : Blood Pressure : / mmHG Vent. Rate : 067 BPM Atrial Rate : 067 BPM P-R Int : 142 ms QRS Dur : 100 ms QT Int : 356 ms P-R-T Axes : 065 045 048 degrees QTc Int : 376 ms Normal sinus rhythm Normal ECG Confirmed by KRISHAN GUTIERREZ, VIVIAN ([id number]), photograph editor JOAO GUTIERREZ ([id number]) on 05/23/2022 8:43:04 AM Referred By: PILAR Confirmed By:VIVIAN NICKERSON MD
[2022-05-22] MEDS: Aspirin 81 MG TAB.CHEW 324 MG PO (13:58)
--- NOTE | 2022-05-22 14:13 | RAD_ITS ---
STUDY: X-RAY CHEST REASON FOR EXAM: Male, 36 years old. Chest pain TECHNIQUE: Single AP portable view of the chest. COMPARISON: Comparison is made with prior study of July 17, 2019. FINDINGS: EKG electrodes are seen. The lungs are clear and expanded. There is no demonstrated pleural abnormality. Normal size heart. Normal mediastinum and milly. Normal visualized pulmonary arteries. Normal visualized aortic arch and descending thoracic aorta. Normal visualized thoracic spine. Normal visualized ribs, clavicles, and shoulders. There is no demonstrated abnormality of the visualized soft tissue structures of the upper abdomen. RAD/Chest 1 View (Portable) IMPRESSION: Normal x-ray examination of the chest. Electronically Signed: Kt Peters MD at 14:31 EDT ,
[2022-05-22 14:17] VITALS: BP 122/88; PULSE 19; RESP 73
[2022-05-22 14:19] LABS: Absolute Lymphocyte Count 1.35 X10^3/uL (0.83-4.51); Absolute Neutrophil Count 3.8 X10^3/uL (2.0-7.7); Basophil# 0.04 X10^3/uL; Basophil% 0.7 % (0-1); Eosinophil# 0.14 X10^3/uL; Eosinophils% 2.4 % (0-5); Hematocrit 49.6 % (40-54); Lymphocyte # 1.35 X10^3/ul (0.83-4.51); Lymphocyte % 23.4 % (19-41); Mean Corp Hgb Conc 32.3 g/dL (32-36); Mean Platelet Vol. 11.3 fl (6.2-12.0); Monocyte# 0.46 X10^3/uL; NRBC Flagged by Analyzer 0 % (0-5); Neutrophil # 3.77 X10^3/uL (2.7-7.7); Neutrophil % 65.2 % (47-70); Platelet Count 177 K/mm3 (150-450); RBC Distribution Width CV 11.9 % (11.6-14.6); RBC Distribution Width SD 39.6 fl (35.1-43.9); Red Blood Count 5.51 M/mm3 (4.6-6.2); White Blood Count 5.8 K/mm3 (4.4-11.0)
[2022-05-22 14:37] LABS: Anion Gap 3 (5-15); BUN 7 mg/dL (7-18); BUN/Creat Ratio 8.7 RATIO (10-20); Calcium,Total 9.6 mg/dL (8.5-10.1); Chloride 105 mmol/L (98-107); EST Glomerular Filtration Rate 116 mL/min (>60); Est Glom Filt Rate - Afr Amer 141 mL/min (>60); Estimated Creatinine Clearance 151.27 ml/min; Glucose 110 mg/dL (74-106); Potassium 4.2 mmol/L (3.5-5.1); Sodium Level 140 mmol/L (136-145); Troponin-I HS (w/2H Reflex) 3 pg/mL (3.0-78.0)
[2022-05-22 15:10] VITALS: BP 131/95; BP 132/75; BP 133/88; PULSE 67; PULSE 69; PULSE 92
[2022-05-22 16:15] LABS: Reflex Troponin-HS? (from REC) Y
[2022-05-22 16:26] VITALS: BP 128/78; PULSE 66; RESP 14; O2SAT 97
[2022-05-22 16:52] LABS: Troponin-I HS 3 pg/mL (3.0-78.0)
[2022-05-22 17:08] VITALS: BP 132/84; PULSE 70; RESP 12; O2SAT 98
== END 2022-05-22 17:29 | disposition home or self-care (01) ==
PROVIDERS: Emergency Provider Emergency Medicine; Visit Provider Emergency Medicine
DX: R55 Syncope and collapse (principal); F17.210 Nicotine dependence, cigarettes, uncomplicated
CPT/HCPCS: 71045; 80048; 84484; 85025; 93005; 99285; A4216

== ENCOUNTER 2022-09-17 21:14 | Emergency (ER) | payer MEDICAID, SELFPAY ==
[2022-09-17 21:15] VITALS: BP 138/99; PULSE 83; RESP 16; TEMP 36.4; O2SAT 99; BMI 25.7
--- NOTE | 2022-09-17 22:36 | EDS_ITS ---
HPI History of Present Illness Chief Complaint: Rash Informant: patient Narrative Narrative: Patient is a 37-year-old male who reports no significant past medical history. He states over the last 5 to 7 days he has had a rash along the right upper arm/shoulder region. He states the rash is pruritic in nature. He denies any new exposures. He states that there is been no progression of the rash down his arm or back. He states that the rash has not worsened but also has not improved and secondary to this he is concerned that he may need medications to help resolve it and he comes in for evaluation. PFSH PFSH Medical History no medical history Home Medications desonide 0.05 % topical cream 1 applic topical TID PRN skin irritation #60 grams 09/17/22 [Rx Last Taken Unknown] sulfamethoxazole 800 mg-trimethoprim 160 mg tablet (Bactrim DS) 1 tab PO BID 10 days #20 tabs 09/17/22 [Rx Last Taken Unknown] Allergy/AdvReac Type Severity Reaction Status Date / Time No Known Allergies Allergy Verified 09/17/22 21:15 Social History Smoking Status: Current every day smoker tobacco type: cigarettes ROS ROS ED Constitutional Constitutional ED: Denies chills or fever(s) ENT ENT ED: Denies sore throat Cardiovascular Cardiovascular: Denies chest pain Respiratory/Chest Respiratory/Chest: Denies cough or dyspnea Gastrointestinal Gastrointestinal: Denies abdominal pain, diarrhea, nausea or vomiting Genitourinary Genitourinary ED: Denies dysuria Musculoskeletal Musculoskeletal: Denies myalgias Integumentary Reports rash Neurologic Neurologic: Denies headache(s) Hematologic/Lymphatic Hematologic/Lymphatic: Denies easy bleeding or easy bruising EXAM Physical Exam Const Vital Signs: 09/17/22 21:15 Temperature 97.6 F L Temperature Source Temporal Pulse Rate 83 Respiratory Rate 16 Blood Pressure 138/99 H Blood Pressure Mean 112 Pulse Ox 99 Positive well nourished and well developed General Appearance ED: well developed HEENT Reports moist mucous membranes HEENT Narrative: No tongue or lip swelling no oral lesions no airway edema or compromise Eyes PERRL and EOMs intact bilaterally Neck supple Resp normal respiratory effort and clear to auscultation bilaterally Cardio regular rate and regular rhythm Extremity normal to inspection Extremity Narrative: Neuro oriented x3 and CN's II-XII intact bilaterally Sensorium / Orientation: alert Psych mental status grossly normal Skin Skin Narrative: Along the right lateral shoulder patient has erythematous blanchable and pustule punctate lesions grouped in a cluster most consistent with a staph or strep infection. There is no obvious abscess formation. No lymphangitic streaking. MDM MDM MDM Narrative Medical decision making narrative: Patient presented to the ER with stable vitals and reported a rash present in the right upper arm for approximately 1 week with no known exposures. He report ed the rash had not greatly increased or resolved during the past 5 to 7 days. He does not have oral lesions or signs of respiratory distress or signs of systemic infection and therefore there is no need for imaging or testing. The cluster nature of the rash coupled with its erythema and pustule formation is concerning for infection. There is no obvious shingles presentation no cellulitis or abscess formation. Therefore at this time he can be placed on oral antibiotics secondary to the presumed staph/strep infection and also topical steroid cream secondary to the pruritic nature of it. However as there were no signs of respiratory distress or systemic infection is otherwise safe for discharge History & Record Review Discussion w/independent historian: Patient Discharge Plan Triage Chief Complaint: Rash ED Provider: Jp Koroma Dx/Rx/DC Orders Clinical Impression: Streptococcal skin infection Instructions: ED Folliculitis Prescriptions: New sulfamethoxazole-trimethoprim [Bactrim DS] 800-160 mg tablet 1 tab PO BID 10 Days Qty: 20 0RF desonide 0.05 % cream 1 applic topical TID PRN (Reason: skin irritation) Qty: 60 0RF Primary Care Provider: Care Physician,No Primary Referrals: Cole Camargo MD [Med Staff - Motor Coach Supervisor] - Care Physician,No Primary [Primary Care Provider] - Activity Restrictions/Additional Instructions: Your rash appears to be a soft tissue skin infection therefore take the antibiotic as directed to resolve this. Use the topical steroid cream to help with further itch and if you have any further concerns or worsening of symptoms return for repeat evaluation Disposition Disposition: Home, Self Care Discharge Date/Time: 09/17/22 22:56
[2022-09-17] MEDS: Smz/Tmp Ds Tablet 1 TABLET PO (22:53)
== END 2022-09-17 22:56 | disposition home or self-care (01) ==
LOC: ED 22:45
PROVIDERS: Emergency Provider Emergency Medicine; Visit Provider Emergency Medicine
DX: A49.1 Streptococcal infection, unspecified site (principal); F17.210 Nicotine dependence, cigarettes, uncomplicated
CPT/HCPCS: 99283

== ENCOUNTER 2023-03-21 16:08 | Emergency (ER) | payer SELFPAY ==
[2023-03-21 16:08] VITALS: BP 126/92; PULSE 80; RESP 16; TEMP 36.2; O2SAT 99; BMI 26.8
--- NOTE | 2023-03-21 16:13 | RAD_ITS ---
INDICATION: INJURY/PAIN EXAMINATION/TECHNIQUE: X-RAY - LEFT XR Ankle 2 Views 3 VIEWS COMPARISON: No relevant prior comparison study available FINDINGS: SOFT TISSUES: Soft tissue swelling about the ankle, more pronounced medially, along the distal tibial metaphysis. No radiopaque foreign body. BONES/JOINTS: No acute fracture or subluxation.. Normal alignment. Preservation of the joint space.. No sclerotic or destructive changes observed. Moderate plantar calcaneal enthesophyte. RAD/Ankle min 3 Views IMPRESSION: No fracture or malalignment. Electronically Signed: Phoenix Rivera MD at 16:56 EST ,
[2023-03-21 18:29] VITALS: PULSE 89; RESP 16; O2SAT 98
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
--- OUTSIDE RECORDS SUMMARY | 2023-03-21 18:43 | XMS RPT_ITS | CCD ---
Author Name Unknown Address [address] [place] [address] Organization [facility] Care Team Providers Care Paper Colorer Name Role Phone CARLOS HOLCOMB DO Admitting Unavailable DIDCARLOS CARRASQUILLO DO Attending Unavailable NO, DOCTOR ON Referring Unavailable CARLOS HOLCOMB DO Primary Care Unavailable NO, DOCTOR ON Consulting Unavailable METCALFLAYNE Sethi Admitting Unavailable LAYNE METCALF Attending Unavailable LAYNE METCALF Primary Care Unavailable NO, DOCTOR ON Consulting Unavailable NO, DOCTOR ON Referring Unavailable Pravin Zuniga MD Primary Care Provider Pravin Zuniga MD Primary Care Provider SIMONA BELTRAN Attending Unavailable GLENN, PRAVIN Navdeep Primary Care Unavailable LUISAMPCARLINE, PRAVIN Navdeep Primary Care Unavailable BELTRAN, SIMONA Referring Unavailable BELTRANSIMONA Attending Unavailable GLENN PRAVIN Navdeep Primary Care Unavailable BELTRAN, SIMONA Referring Unavailable LUISAMPCARLINE, PRAVIN Navdeep Primary Care Unavailable BELTRAN, SIMNOA Referring Unavailable TALAMPCARLINE, PRAVIN D Primary Care Unavailable CARLOS TAMAYO Attending Unavailable BELTRANSIMONA Referring Unavailable Medications Current Medications Medication Drug Class(es) Dates Sig (Normalized) Sig (Original) perflutren lipid microspheres 1.3 mL in NaCl (PF) 0.9% 10 mL injection (DEFINITY) (1 source) Start: 01-09-2022 End: 04-10-2023 perflutren lipid microspheres 1.3 mL in NaCl (PF) 0.9% 10 mL injection (DEFINITY) 125 ml sodium chloride 9 mg/ml prefilled syringe (1 source) Start: 01-09-2022 End: 04-10-2023 sodium chloride 0.9 % (flush) 10 mL (BD POSIFLUSH) Completed/Discontinued Medications Medication Drug Class(es) Dates Sig (Normalized) Sig (Original) 200 actuat albuterol 0.09 mg/actuat dry powder inhaler (3 sources) beta2-Adrenergic Agonist Start: 07-17-2019 End: 10-11-2021 albuterol sulfate 90 mcg/actuation breath activated powder inhaler EVERY 4 HOURS NEEDED 0 07/17/2019 10/11/2021 Discontinued Problems Active Problems Problem Classification Problem Date Documented Da te Episodic/Chronic Nonspecific chest pain (6 sources) Non-cardiac chest pain; Translations: [Other chest pain] Onset: 06-09-2021 06-09-2021 Episodic Residual codes; unclassified (2 sources) Tobacco user; Translations: [Tobacco use] Onset: 01-09-2022 Episodic Substance-related disorders (3 sources) Smoker; Translations: [Nicotine dependence, unspecified, uncomplicated] Onset: 08-11-2021 Chronic Past or Other Problems Problem Classification Problem Date Documented Da te Episodic/Chronic Abdominal pain (5 sources) Epigastric pain; Translations: [Epigastric pain] Onset: 06-09-2021 06-09-2021 Episodic Cardiac dysrhythmias (5 sources) Palpitations; Translations: [Palpitations] Onset: 08-11-2021 Episodic Immunizations and screening for infectious disease (8 sources) Patient encounter status; Translations: [Encounter for immunization] Onset: 08-11-2021 Episodic Results Test Name Value Interpretation Reference Range Facil ity Vital Signs Date Time Vital Sign Value Performing Clinician Kevin small 01-09-2022 11:43-0500 Body weight 85.73 kg Carlos Tamayo MD Work Phone: [facility] 01-09-2022 11:43-0500 Diastolic blood pressure 92 mm[Hg] Carlos Tamayo MD Work Phone: [facility] 01-09-2022 11:43-0500 Heart rate 102 /min Carlos Tamayo MD Work Phone: [facility] 01-09-2022 11:43-0500 SaO2% (BldA) [Mass fraction] 97 % Carlos Tamayo MD Work Phone: [facility] 01-09-2022 11:43-0500 Systolic blood pressure 148 mm[Hg] Carlos Tamayo MD Work Phone: [facility] 10-11-2021 13:24-0400 Body weight 84.37 kg Simona Beltran [employer]ADER.[employer]ING INST[employer]ER Work Phone: [facility] 10-11-2021 13:24-0400 Diastolic blood pressure 82 mm[Hg] Simona Beltran [employer]OTATO GRADER.[employer] ROOFING INSTALLER Work Phone: [facility] 10-11-2021 13:24-0400 Heart rate 72 /min Simona Beltran POTATO GRADER.[employer] ROOFING INSTALLER Work Phone: [facility] 10-11-2021 13:24-0400 Respiratory rate 16 /min Simona Beltran POTATO GRADER.CO[employer] ROOFING INSTALLER Work Phone: [facility] 10-11-2021 13:24-0400 Systolic blood pressure 126 mm[Hg] Simona Beltran POTATO GRADER.CO[employer] ROOFING INSTALLER Work Phone: [facility] 08-11-2021 08:51-0400 Diastolic blood pressure 82 mm[Hg] Simona Beltran POTATO GRADER.CO[employer] ROOFING INSTALLER Work Phone: [facility] 08-11-2021 08:51-0400 Heart rate 80 /min Simona Beltran POTATO GRADER.CO[employer] ROOFING INSTALLER Work Phone: [facility] 08-11-2021 08:51-0400 Systolic blood pressure 122 mm[Hg] Simona Beltran POTATO GRADER.CO[employer] ROOFING INSTALLER Work Phone: [facility] 08-11-2021 08:45-0400 Body height 190.5 cm Simona Beltran POTATO GRADER.CO[employer] ROOFING INSTALLER Work Phone: [facility] 08-11-2021 08:45-0400 Body weight 79.83 kg Simona Beltran POTATO GRADER.CO[employer] ROOFING INSTALLER Work Phone: [facility] 08-11-2021 08:45-0400 Respiratory rate 16 /min Simona Beltran POTATO GRADER.CO[employer] ROOFING INSTALLER Work Phone: [facility] 08-11-2021 08:45-0400 SaO2% (BldA) [Mass fraction] 99 % Simona Beltran POTATO GRADER.CO[employer] ROOFING INSTALLER Work Phone: [facility] Encounters Encounter Date Encounter Type Care Provider Facility Start: 01-09-2022 End: 01-09-2022 ambulatory PRAVIN ZUNIGA Facility:[facility] Start: 01-09-2022 End: 01-09-2022 Patient encounter procedure Carlos Tamayo MD Work Phone: Cardiology Procedures Date Procedure Procedure Detail Performing Clinician Start: 10-11-2021 Ecg routine ecg w/le ast 12 lds w/i&r [facility] Provider Start: 08-11-2021 Adult depression screening assessment Simona Beltran APRN.COOL ROOFING INSTALLER Work Phone: Plan of Treatment Date Care Activity Detail Author Start: 08-11-2022 Adult depression scr eening assessment DEPRESSION SCREENING [facility] Start: 03-06-2022 Urine microalbumin profile DTAP,TDAP ,TD (1 - Tdap) [facility] Payers Date Payer Category Payer Medicaid [employer] [employer] [id number] 2019-Present [phone] [place] [id number] Medicaid [id number] 2019 Medicaid [id number] 2017 Unknown [id number] 1987 Unknown [id number] 1987 Unknown [id number] Worker's Compensation [id number] Social History Date Type Detail Facility Start: 08-11-2006 End: 10-11-2021 Tobacco smoking status NHIS Smokes tobacco daily [facility] Work Phone: Start: 08-11-2006 History of tobacco use Cigarette Smo ker [facility] Work Phone: Start: 08-11-2021 End: 10-11-2021 Cigarettes smoked current (pack per day) - Reported 1 [facility] Start: 08-11-2021 End: 10-11-2021 Tobacco use and exposure Smokeless tobacco non-user [facility] Work Phone: Start: 08-11-2021 End: 01-09-2022 Alcohol intake Current drinker of alcohol (finding) [facility] Start: 08-11-2021 History SDOH Alcohol Comment occasionally [facility] Start: 1985 Sex Assigned At Not on file [facility] Start: 08-01-2021 End: 01-09-2022 Exposure to SARS-CoV-2 (event) Not sure [facility] Work Phone: Clinical Notes 08-11-2021 to 01-09-2022 Patient InstructionsDavid Gennaro Tamayo MD - 01/09/2022 11:20 AM ESTTelephone Encounter - Rachele Gee [facility] - 12/19/2021 5:02 PM EDTTelephone Encounter - Rachele Gee [facility] - 12/19/2021 3:31 PM EDT Note Date & Type Note Facility 01-09-2022 Note HNO ID: [id number] Author: Carlos Tamayo MD Service: ? Author Type: Physician Type: Progress Notes Filed: 01/09/2022 12:13 PM Note Text: [facility]OLOGY Cardiology ([facility]) [address] [facility] [id number] OUTPATIENT VISIT DATE 01/07/2022 PRIMARY CARE PHYSICIAN: Pravin Zuniga [address] [place] [id number] REFERRING PHYSICIAN: Simona Beltran [address] [facility] [place] [address] CHIEF COMPLAINT: Palpitations and chest pain HISTORY OF PRESENT ILLNESS: Mr. Morales is a 36 year old gentleman referred by Imer Beltran APRN for evaluation of palpitations abnormal Holter monitor. Results of my consultation be communicated to patient's primary care physician and Imer Beltran APRN via shared medical record. Patient describes frequent episodes of racing heartbeats. They are usually brief and self-limited. There seems to be no exacerbating relieving factors. He also notices his heart pounds in the evening hours when he lays down in bed. He feels like his heart is thumping. He has good functional capacity. He walks almost everywhere he goes. He puts in close to 10 miles a day. He walks to and from work. 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 Unfortunately, he continues to smoke a pack of cigarettes a day. He admits to high caffeine intake and use of energy drinks. He reports having episodes of left arm numbness and tingling. He tells me they will persist for 2 days at a time. 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 He has not had reproducible chest pain, pressure, or You aching with exertion. PAST MEDICAL HISTORY Diagnosis Date NEGATIVE HISTORY OF PAST SURGICAL HISTORY Procedure Laterality Date NONE SOCIAL HISTORY Social History Tobacco Use Smoking status: Every Day Packs/day: 1.00 Years: 14.00 Pack years: 14.00 Types: Cigarettes Start date: 08/11/2006 Smokeless tobacco: Never Substance Use Topics Alcohol use: Yes Comment: occasionally Drug use: Never FAMILY HISTORY Problem Relation Age of Onset No Known Problems Mother Cancer Father Cancer Maternal Grandmother Cancer Paternal Grandmother ALLERGIES: ALLERGIES No Known Allergies MEDICATIONS: omeprazole (PRILOSEC) 20 mg capsule Take 1 capsule by mouth daily before breakfast. (Patient not taking: Reported on 01/09/2022) nicotine (NICODERM) 21 mg/24 hr Apply 1 Patch as directed every 24 hours. x 6 weeks then start 14 mg patch. Do not smoke when wearing patch (Patient not taking: Reported on 10/11/2021) nicotine (NICODERM) 14 mg/24 hr Apply 1 Patch as directed every 24 hours for 14 days. x 2 weeks then start 7 mg patch. Do not smoke when wearing patch nicotine (NICODERM) 7 mg/24 hr Apply 1 Patch as directed every 24 hours. Do not smoke when wearing patch (Patient not taking: Reported on 10/11/2021) REVIEW OF SYSTEMS: Review of Systems Constitutional: Negative for chills, fever, malaise/fatigue and weight loss. HENT: Negative for hearing loss and sore throat. Eyes: Negative for blurred vision and double vision. Respiratory: Negative. Cardiovascular: Positive for palpitations. Gastrointestinal: Negative. Genitourinary: Negative for dysuria, frequency, hematuria and urgency. Musculoskeletal: Negative. Skin: Negative. Neurological: Negative for dizziness, seizures, loss of consciousness, weakness and headaches. Endo/Heme/Allergies: Negative for environmental allergies. Does not bruise/bleed easily. Psychiatric/Behavioral: Negative for depression. Nervous/anxious: .smdiag. PHYSICAL EXAMINATION: BP 148/92 Pulse 102 Wt 189 lb (85.7kg) SpO2 97% General: Young somewhat disheveled gentleman sitting appears comfortable no apparent distress. He is alert and oriented x3 HEENT: Carotid upstrokes are brisk bilaterally without bruits no JVD appreciated. Pulmonary: Lungs are clear no rales, wheezes, rhonchi Cardiovascular: Normal S1, S2 with regular rate and rhythm. No murmurs, rubs, or gallops Extremities: Warm, well-perfused, no lower extremity edema. 2+ distal pulses CARDIOVASCULAR MEDICINE TESTING: Zio Monitor 10/11/2021 Patient had a min HR of 45 bpm, max HR of 193 bpm, and avg HR of 85 bpm. Predominant underlying rhythm was Sinus Rhythm. Slight P wave morphology changes were noted. 3 Supraventricular Tachycardia runs occurred, the run with the fastest interval lasting 5 beats with a max rate of 193 bpm, the longest lasting 9 beats with an avg rate of 158 bpm. Second Degree AV Block-Mobitz I (Wenckebach) was present. Isolated SVEs were rare (<1.0%), SVE Couplets were rare (<1.0%), and no SVE Triplets were present. Isolated VEs were rare (<1.0%), VE Couplets were rare (<1.0%), and no VE Triplets were present. Inverted QRS complexes possibly due to inverted placement of device. IMPRESSION: (more content not included)... [facility] 01-09-2022 Instructions Carlos Tamayo MD - 01/09/2022 12:01 PM EST We are ordering an echocardiogram documented in this encounter [facility] 01-09-2022 History of Presen t illness Narrative Images from the original note were not included. [facility]Y Cardiology ([facility]) [address] [facility] [id number] OUTPATIENT VISIT DATE 01/07/2022 PRIMARY CARE PHYSICIAN: Pravin Zuniga [address] [place] [address] REFERRING PHYSICIAN: Simona Beltran [address] [facility] [place] [address] CHIEF COMPLAINT: Palpitations and chest pain HISTORY OF PRESENT ILLNESS: Mr. Morales is a 36 year old gentleman referred by Imer Beltran APRN for evaluation of palpitations abnormal Holter monitor. Results of my consultation be communicated to patient's primary care physician and Imer Beltran APRN via shared medical record. Patient describes frequent episodes of racing heartbeats. They are usually brief and self-limited. There seems to be no exacerbating relieving factors. He also notices his heart pounds in the evening hours when he lays down in bed. He feels like his heart is thumping. He has good functional capacity. He walks almost everywhere he goes. He puts in close to 10 miles a day. He walks to and from work. 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 Unfortunately, he continues to smoke a pack of cigarettes a day. He admits to high caffeine intake and use of energy drinks. He reports having episodes of left arm numbness and tingling. He tells me they will persist for 2 days at a time. 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 He has not had reproducible chest pain, pressure, or You aching with exertion. PAST MEDICAL HISTORY Diagnosis Date NEGATIVE HISTORY OF PAST SURGICAL HISTORY Procedure Laterality Date NONE SOCIAL HISTORY Social History Tobacco Use Smoking status: Every Day Packs/day: 1.00 Years: 14.00 Pack years: 14.00 Types: Cigarettes Start date: 08/11/2006 Smokeless tobacco: Never Substance Use Topics Alcohol use: Yes Comment: occasionally Drug use: Never FAMILY HISTORY Problem Relation Age of Onset No Known Problems Mother Cancer Father Cancer Maternal Grandmother Cancer Paternal Grandmother ALLERGIES: ALLERGIES No Known Allergies MEDICATIONS: omeprazole (PRILOSEC) 20 mg capsule Take 1 capsule by mouth daily before breakfast. (Patient not taking: Reported on 01/09/2022) nicotine (NICODERM) 21 mg/24 hr Apply 1 Patch as directed every 24 hours. x 6 weeks then start 14 mg patch. Do not smoke when wearing patch (Patient not taking: Reported on 10/11/2021) nicotine (NICODERM) 14 mg/24 hr Apply 1 Patch as directed every 24 hours for 14 days. x 2 weeks then start 7 mg patch. Do not smoke when wearing patch nicotine (NICODERM) 7 mg/24 hr Apply 1 Patch as directed every 24 hours. Do not smoke when wearing patch (Patient not taking: Reported on 10/11/2021) REVIEW OF SYSTEMS: Review of Systems Constitutional: Negative for chills, fever, malaise/fatigue and weight loss. HENT: Negative for hearing loss and sore throat. Eyes: Negative for blurred vision and double vision. Respiratory: Negative. Cardiovascular: Positive for palpitations. Gastrointestinal: Negative. Genitourinary: Negative for dysuria, frequency, hematuria and urgency. Musculoskeletal: Negative. Skin: Negative. Neurological: Negative for dizziness, seizures, loss of consciousness, weakness and headaches. Endo/Heme/Allergies: Negative for environmental allergies. Does not bruise/bleed easily. Psychiatric/Behavioral: Negative for depression. Nervous/anxious: .smdiag. PHYSICAL EXAMINATION: BP 148/92 Pulse 102 Wt 189 lb (85.7kg) SpO2 97% General: Young somewhat disheveled gentleman sitting appears comfortable no apparent distress. He is alert and oriented x3 HEENT: Carotid upstrokes are brisk bilaterally without bruits no JVD appreciated. Pulmonary: Lungs are clear no rales, wheezes, rhonchi Cardiovascular: Normal S1, S2 with regular rate and rhythm. No murmurs, rubs, or gallops Extremities: Warm, well-perfused, no lower extremity edema. 2+ distal pulses CARDIOVASCULAR MEDICINE TESTING: Zio Monitor 10/11/2021 Patient had a min HR of 45 bpm, max HR of 193 bpm, and avg HR of 85 bpm. Predominant underlying rhythm was Sinus Rhythm. Slight P wave morphology changes were noted. 3 Supraventricular Tachycardia runs occurred, the run with the fastest interval lasting 5 beats with a max rate of 193 bpm, the longest lasting 9 beats with an avg rate of 158 bpm. Second Degree AV Block-Mobitz I (Wenckebach) was present. Isolated SVEs were rare (<1.0%), SVE Couplets were rare (<1.0%), and no SVE Triplets were present. Isolated VEs were rare (<1.0%), VE Couplets were rare (<1.0%), and no VE Triplets were present. Inverted QRS complexes possibly due to inverted placement of device. IMPRESSION: Mr. Morales is a 36 year old who presents for evaluation of abnormal Holter monitor and atypical chest pain symptoms. PLAN AND RECOMMENDATIONS: 1. Palpitations - ICD9: 785.1, ICD10: R00.2 (primary diagnosis) I reviewed his Holter monitor results with him during the office visit. His SVT episodes are insignificant and infrequent. Patient would benefit from lifestyle modification including avoidance of high energy drinks and decrease caffeine input. I also recommended smoking cessation for further improvements in his palpitations and overall cardiovascular risk reduction. No indication for initiation of therapy at this time. He reports frequent evaluations in the emergency room for these ongoing symptoms. Help reassure, I have ordered a 2D echocardiogram. - ECHO - PERFLUTREN LIPID MICROSPHERES 1.1 MG/ML INJECTION IN NS 10 ML - SODIUM CHLORIDE 0.9 % (FLUSH) INJECTION SYRINGE 2. Non-cardiac chest pain - ICD9: 786.59, ICD10: R07.89 Atypical symptoms not reproducible with exertion. Patient has above average functional capacity for his age. I recommended lifestyle modification as noted above. - ECHO - PERFLUTREN LIPID MICROSPHERES 1.1 MG/ML INJECTION IN NS 10 ML - SODIUM CHLORIDE 0.9 % (FLUSH) INJECTION SYRINGE 3. Tobacco abuse - ICD9: 305.1, ICD10: Z72.0 - Cessation encouraged. - Physiologic and physical aspects of tobacco addiction as well as strategies for quitting were discussed. - Counseling was given focusing on the harmful effects of this addiction especially given the patient's medical condition(s) which will be worsened because of the chemicals in tobacco. Carlos Tamayo MD documented in this encounter [facility] 12-19-2021 Miscellaneous Notes Patient notified of providers message and verbalized understanding. Recommend continue with current treatments and keep appt with cardiology. Let us know if any concerning or severe symptoms. Patient notified of providers message and verbalized understanding. Patient states medication may be helping a little but continue to have chest on occasion. Zio revealed primarily sinus rhythm, rare ectopics. Check to see if feeling improved with PPI and lifestyle measures. Has appt cardiology scheduled. documented in this encounter [facility] 10-11-2021 Note HNO ID: [id number] Author: Simona Beltran APRN.CNS Service: ? Author Type: Nurse Specialist Type: Progress Notes Filed: 10/11/2021 3:01 PM Note Text: SUBJECTIVE: HEPATITIS B(1 of 3 - 3-dose series) Never done COVID-19 VACCINE(1) Never done PNEUMOCOCCAL(1 - PCV) Never done HPI Jose Morales is a 35 year old male. PMH significant for ACTIVE PROBLEM LIST Non-Cardiac Chest Pain Epigastric Pain HPI excerpted from previous visit: Presents today to establish care with [facility] PCP. Previous PCP: states none, can't recall who he has seen ER/Hospitalization: [facility] ER 2020 Outside records: none He reports not consistently seeing any provider. Has gone to [facility] emergency department for palpitations and work-up was negative per his report. Notes occasionally not feeling well at home, feeling palpitations that feel like a rapid fluttering in the left side of his chest, dizziness and lightheadedness discomfort to both arms that passes without intervention and shortness of breath when this occurs. Notes this is intermittent and none currently. Notes he is felt better since decreasing caffeine intake. Notes he was drinking 2 pots of coffee per day, has decreased down to 1. Notes also drinking caffeinated beverages during the day. Eats fast food routinely and smokes. Notes he feels better when cutting back on all of these things. Notes he checks his blood pressure at home when not feeling well and systolic blood pressures have had readings of 140-180. Currently without symptoms. No reported limitations of walking a flat surface or taking stairs, no report of inability to complete daily activities. Today notes he has been trying to decrease caffeine intake. Has decreased from 2 pots of coffee daily down to one half pot on the weekend and 1 cup during the week. Does have energy drinks during weekdays but this is rare. Notes that he tried to quit smoking, decreased down to half pack but now back up to 1 pack daily. Notes that he continues to note palpitations throughout the day most of the day. States he mostly notices when he lays down at night. Feels like rapid or strong beats. He reports left axillary discomfort helped with IcyHot, often notices this when he has palpitations, not sure if this is related to his palpitations. Without report of chest pain shortness of breath dizziness lightheadedness edema presyncope or syncope today. Review of Systems Constitutional: Negative. Cardiovascular: Positive for palpitations. Objective BP 126/82 Pulse 72 Resp 16 Wt 84.4 kg (186 lb) BMI 23.25 kg/m? Physical Exam Vitals and nursing note reviewed. Constitutional: Appearance: Normal appearance. HENT: Head: Normocephalic and atraumatic. Eyes: Conjunctiva/sclera: Conjunctivae normal. Neck: Thyroid: No thyromegaly. Vascular: Normal carotid pulses. No JVD. Cardiovascular: Rate and Rhythm: Normal rate and regular rhythm. Pulses: Carotid pulses are 2+ on the right side and 2+ on the left side. Radial pulses are 2+ on the right side and 2+ on the left side. Heart sounds: Normal heart sounds. Pulmonary: Effort: Pulmonary effort is normal. Breath sounds: Normal breath sounds. Abdominal: General: Bowel sounds are normal. Palpations: Abdomen is soft. Musculoskeletal: Right lower leg: No edema. Comments: Left axillary discomfort with raising arm, no mass noted, no crepitus, no decreased range of motion Skin: General: Skin is warm and dry. Neurological: General: No focal deficit present. Mental Status: He is alert and oriented to person, place, and time. ALLERGIES No Known Allergies MEDICATIONS omeprazole (PRILOSEC) 20 mg capsule Take 1 capsule by mouth daily before breakfast. nicotine (NICODERM) 21 mg/24 hr Apply 1 Patch as directed every 24 hours. x 6 weeks then start 14 mg patch. Do not smoke when wearing patch (Patient not taking: Reported on 10/11/2021) nicotine (NICODERM) 14 mg/24 hr Apply 1 Patch as directed every 24 hours for 14 days. x 2 weeks then start 7 mg patch. Do not smoke when wearing patch nicotine (NICODERM) 7 mg/24 hr Apply 1 Patch as directed every 24 hours. Do not smoke when wearing patch (Patient not taking: Reported on 10/11/2021) PAST MEDICAL HISTORY Diagnosis Date NEGATIVE HISTORY OF PAST SURGICAL HISTORY Procedure Laterality Date NONE Social History Tobacco Use Smoking status: Every Day Packs/day: 1.00 Years: 14.00 Pack years: 14.00 Types: Cigarettes Start date: 08/11/2006 Smokeless tobacco: Never Substance Use Topics Alcohol use: Yes Comment: occasionally Drug use: Never FAMILY HISTORY Problem Relation Age of Onset No Known Problems Mother Cancer Father Cancer Maternal Grandmother Cancer Paternal Grandmother Component Latest Ref Rng AND Units 08/11/2021 WBC 3.70 - 11.00 k/uL 4.88 RBC 4.20 - 6.00 m/uL 4.98 Hemoglobin 13.0 - 17.0 g/dL 14.5 Hematocrit 39. (more content not included)... [facility] 10-11-2021 Note HNO ID: [id number] Author: Naeem De MD Service: Interventional Cardiology Author Type: Physician Type: Procedures Filed: 12/12/2021 3:57 PM Note Text: Patient Name: Jose Morales : 1985 Ordering Provider: SIMONA BELTRAN Indication: R00.2 Palpitations Type of Monitor: Extended Monitoring-Zio Patch Enrollment Dates: 10/11/2021-10/24/2021 [facility] 10-11-2021 Nurse Note EVENT MONITOR DISPOSABLE PATCH INSTRUCTIONS [facility]: [id number] Skin prepped and cleansed with alcohol Patch secured to prepped area Monitor Activated Serial #: [id number] Patient Instructed: Prescribed order timeframe Bathing guidelines Usage of event button and diary documentation Return of monitor at the end of prescribed order Call with problems [phone] or [phone] ext. [phone] Patient expresses a good understanding of instructions Rachele Gee LPN documented in this encounter [facility] 10-11-2021 Instructions Simona Beltran APRN.ZAKIYA - 10/11/2021 1:47 PM EDT Continue to decrease caffeine intake Avoid fast foods as much as possible. Work on discontinuing smoking. Take omeprazole daily for 2-3 months documented in this encounter [facility] 10-11-2021 History of Presen t illness Narrative SUBJECTIVE: HEPATITIS B(1 of 3 - 3-dose series) Never done COVID-19 VACCINE(1) Never done PNEUMOCOCCAL(1 - PCV) Never done HPI Jose Morales is a 35 year old male. PMH significant for ACTIVE PROBLEM LIST Non-Cardiac Chest Pain Epigastric Pain HPI excerpted from previous visit: Presents today to establish care with [facility] PCP. Previous PCP: states none, can't recall who he has seen ER/Hospitalization: [facility] ER 2020 Outside records: none He reports not consistently seeing any provider. Has gone to [facility] emergency department for palpitations and work-up was negative per his report. Notes occasionally not feeling well at home, feeling palpitations that feel like a rapid fluttering in the left side of his chest, dizziness and lightheadedness discomfort to both arms that passes without intervention and shortness of breath when this occurs. Notes this is intermittent and none currently. Notes he is felt better since decreasing caffeine intake. Notes he was drinking 2 pots of coffee per day, has decreased down to 1. Notes also drinking caffeinated beverages during the day. Eats fast food routinely and smokes. Notes he feels better when cutting back on all of these things. Notes he checks his blood pressure at home when not feeling well and systolic blood pressures have had readings of 140-180. Currently without symptoms. No reported limitations of walking a flat surface or taking stairs, no report of inability to complete daily activities. Today notes he has been trying to decrease caffeine intake. Has decreased from 2 pots of coffee daily down to one half pot on the weekend and 1 cup during the week. Does have energy drinks during weekdays but this is rare. Notes that he tried to quit smoking, decreased down to half pack but now back up to 1 pack daily. Notes that he continues to note palpitations throughout the day most of the day. States he mostly notices when he lays down at night. Feels like rapid or strong beats. He reports left axillary discomfort helped with IcyHot, often notices this when he has palpitations, not sure if this is related to his palpitations. Without report of chest pain shortness of breath dizziness lightheadedness edema presyncope or syncope today. Review of Systems Constitutional: Negative. Cardiovascular: Positive for palpitations. Objective BP 126/82 Pulse 72 Resp 16 Wt 84.4 kg (186 lb) BMI 23.25 kg/m Physical Exam Vitals and nursing note reviewed. Constitutional: Appearance: Normal appearance. HENT: Head: Normocephalic and atraumatic. Eyes: Conjunctiva/sclera: Conjunctivae normal. Neck: Thyroid: No thyromegaly. Vascular: Normal carotid pulses. No JVD. Cardiovascular: Rate and Rhythm: Normal rate and regular rhythm. Pulses: Carotid pulses are 2+ on the right side and 2+ on the left side. Radial pulses are 2+ on the right side and 2+ on the left side. Heart sounds: Normal heart sounds. Pulmonary: Effort: Pulmonary effort is normal. Breath sounds: Normal breath sounds. Abdominal: General: Bowel sounds are normal. Palpations: Abdomen is soft. Musculoskeletal: Right lower leg: No edema. Comments: Left axillary discomfort with raising arm, no mass noted, no crepitus, no decreased range of motion Skin: General: Skin is warm and dry. Neurological: General: No focal deficit present. Mental Status: He is alert and oriented to person, place, and time. ALLERGIES No Known Allergies MEDICATIONS omeprazole (PRILOSEC) 20 mg capsule Take 1 capsule by mouth daily before breakfast. nicotine (NICODERM) 21 mg/24 hr Apply 1 Patch as directed every 24 hours. x 6 weeks then start 14 mg patch. Do not smoke when wearing patch (Patient not taking: Reported on 10/11/2021) nicotine (NICODERM) 14 mg/24 hr Apply 1 Patch as directed every 24 hours for 14 days. x 2 weeks then start 7 mg patch. Do not smoke when wearing patch nicotine (NICODERM) 7 mg/24 hr Apply 1 Patch as directed every 24 hours. Do not smoke when wearing patch (Patient not taking: Reported on 10/11/2021) PAST MEDICAL HISTORY Diagnosis Date NEGATIVE HISTORY OF PAST SURGICAL HISTORY Procedure Laterality Date NONE Social History Tobacco Use Smoking status: Every Day Packs/day: 1.00 Years: 14.00 Pack years: 14.00 Types: Cigarettes Start date: 08/11/2006 Smokeless tobacco: Never Substance Use Topics Alcohol use: Yes Comment: occasionally Drug use: Never FAMILY HISTORY Problem Relation Age of Onset No Known Problems Mother Cancer Father Cancer Maternal Grandmother Cancer Paternal Grandmother Component Latest Ref Rng & Units 08/11/2021 WBC 3.70 - 11.00 k/uL 4.88 RBC 4.20 - 6.00 m/uL 4.98 Hemoglobin 13.0 - 17.0 g/dL 14.5 Hematocrit 39.0 - 51.0 % 45.8 MCV 80.0 - 100.0 fL 92.0 MCH 26.0 - 34.0 pg 29.1 MCHC 30.5 - 36.0 g/dL 31.7 RDW-CV 11.5 - 15.0 % 12.1 Platelet Count 150 - 400 k/uL 188 MPV 9.0 - 12.7 fL 11.4 Neut% % 49.5 Abs Neut (ANC) 1.45 - 7.50 k/uL 2.42 Lymph% % 36.3 Abs Lymph 1.00 - 4.00 k/uL 1.77 Jasper% % 10.9 Abs Jasper <0.87 k/uL 0.53 Eosin% % 2.7 Abs Eosin <0.46 k/uL 0.13 Baso% % 0.4 Abs Baso <0.11 k/uL <0.03 Immature Gran % % 0.2 IMMATURE GRANS (ABS) <0.10 k/uL <0.03 NRBC /100 WBC 0.0 Absolute nRBC <0.01 k/uL <0.01 DTYPE Auto Protein, Total 6.3 - 8.0 g/dL 7.3 Albumin 3.9 - 4.9 g/dL 4.5 Calcium 8.5 - 10.2 mg/dL 9.7 Bilirubin, Total 0.2 - 1.3 mg/dL 0.9 Alkaline Phosphatase 38 - 113 U/L 62 AST 14 - 40 U/L 20 ALT 10 - 54 U/L 25 Glucose 74 - 99 mg/dL 86 BUN 9 - 24 mg/dL 11 Creatinine 0.73 - 1.22 mg/dL 0.79 Sodium 136 - 144 mmol/L 139 Potassium 3.7 - 5.1 mmol/L 4.2 Chloride 97 - 105 mmol/L 100 CO2 22 - 30 mmol/L 31 (H) Anion Gap 9 - 18 mmol/L 8 (L) eGFR >=60 mL/min/1.73m 120 Cholesterol, Total <200 mg/dL 120 Triglyceride <150 mg/dL 110 HDL Cholesterol >39 mg/dL 23 (L) Non HDL Cholesterol <130 mg/dL 97 Fasting Time hrs 12 VLDL Cholesterol <30 mg/dL 22 TC:HDL Ratio <5.10 5.22 (H) LDL Cholesterol <100 mg/dL 75 LDL:HDL Ratio <2.54 3.26 (H) HIV 12 Combo (Ag/Ab) Nonreactive Nonreactive HIV 1/2 Ab HIV Interpretation TSH 0.270 - 4.200 mIU/L 1.070 Hep C Antibody IA Negative Negative ASSESSMENT/PLAN: 1. Palpitations - ICD9: 785.1, ICD10: R00.2 (primary diagnosis) Endorse heart healthy recommendations previously provided: Decrease /discontinue caffeine intake, avoid fast foods, smoking cessation endorsed. EKG completed in office today showed normal sinus rhythm without ectopy or ischemic changes ventricular rate 61 bpm MD interval 134 ms QRS duration 98 ms QTC 390 ms - ECG COMPLETE - OUTSIDE VENDOR CARDIAC OUTPATIENT EXTENDED RHYTHM RECORDING (WITHOUT TELEMETRY) 2. Smoker - ICD9: 305.1, ICD10: F17.200 - Cessation encouraged. Has not tried nicotine patches yet Labs completed at previous visit were within normal limits. To complete Ziopatch x 14 days Trial omeprazole 2-3 mos to see if symptoms improve 6-[address] Botello - to establish iSmona Beltran APRN.COOL ROOFING INSTALLER Medical Decision Making: Problems: Moderate: New problem with uncertain prognosis Data: Unique test(s) ordered: 2 Risk: Moderate: Drug management Medical Decision Making Level: 4 - Moderate documented in this encounter [facility] 08-25-2021 Miscellaneous Notes Patient notified of lab results and verbalized understanding Recent labwork was in acceptable range. Component Latest Ref Rng & Units 08/11/2021 WBC 3.70 - 11.00 k/uL 4.88 RBC 4.20 - 6.00 m/uL 4.98 Hemoglobin 13.0 - 17.0 g/dL 14.5 Hematocrit 39.0 - 51.0 % 45.8 MCV 80.0 - 100.0 fL 92.0 MCH 26.0 - 34.0 pg 29.1 MCHC 30.5 - 36.0 g/dL 31.7 RDW-CV 11.5 - 15.0 % 12.1 Platelet Count 150 - 400 k/uL 188 MPV 9.0 - 12.7 fL 11.4 Neut% % 49.5 Abs Neut (ANC) 1.45 - 7.50 k/uL 2.42 Lymph% % 36.3 Abs Lymph 1.00 - 4.00 k/uL 1.77 Jasper% % 10.9 Abs Jasper <0.87 k/uL 0.53 Eosin% % 2.7 Abs Eosin <0.46 k/uL 0.13 Baso% % 0.4 Abs Baso <0.11 k/uL <0.03 Immature Gran % % 0.2 IMMATURE GRANS (ABS) <0.10 k/uL <0.03 NRBC /100 WBC 0.0 Absolute nRBC <0.01 k/uL <0.01 DTYPE Auto Protein, Total 6.3 - 8.0 g/dL 7.3 Albumin 3.9 - 4.9 g/dL 4.5 Calcium 8.5 - 10.2 mg/dL 9.7 Bilirubin, Total 0.2 - 1.3 mg/dL 0.9 Alkaline Phosphatase 38 - 113 U/L 62 AST 14 - 40 U/L 20 ALT 10 - 54 U/L 25 Glucose 74 - 99 mg/dL 86 BUN 9 - 24 mg/dL 11 Creatinine 0.73 - 1.22 mg/dL 0.79 Sodium 136 - 144 mmol/L 139 Potassium 3.7 - 5.1 mmol/L 4.2 Chloride 97 - 105 mmol/L 100 CO2 22 - 30 mmol/L 31 (H) Anion Gap 9 - 18 mmol/L 8 (L) eGFR >=60 mL/min/1.73m 120 Cholesterol, Total <200 mg/dL 120 Triglyceride <150 mg/dL 110 HDL Cholesterol >39 mg/dL 23 (L) Non HDL Cholesterol <130 mg/dL 97 Fasting Time hrs 12 VLDL Cholesterol <30 mg/dL 22 TC:HDL Ratio <5.10 5.22 (H) LDL Cholesterol <100 mg/dL 75 LDL:HDL Ratio <2.54 3.26 (H) HIV 12 Combo (Ag/Ab) Nonreactive Nonreactive HIV 1/2 Ab HIV Interpretation TSH 0.270 - 4.200 mIU/L 1.070 Hep C Antibody IA Negative Negative documented in this encounter [facility] 08-11-2021 Note HNO ID: [id number] Author: Simona Beltran APRN.COOL ROOFING INSTALLER Service: ? Author Type: Nurse Specialist Type: Progress Notes Filed: 08/11/2021 10:42 AM Note Text: SUBJECTIVE: COVID-19 VACCINE(1) Never done PNEUMOCOCCAL(1 - PCV) Never done HEPATITIS C SCREENING Never done HIV SCREENING Never done HPI Jose Morales is a 35 year old male. PMH significant for ACTIVE PROBLEM LIST Non-Cardiac Chest Pain Epigastric Pain Presents today to establish care with [facility] PCP. Previous PCP: states none, can't recall who he has seen ER/Hospitalization: [facility] ER 2020 Outside records: none He reports not consistently seeing any provider. Has gone to [facility] emergency department for palpitations and work-up was negative per his report. Notes occasionally not feeling well at home, feeling palpitations that feel like a rapid fluttering in the left side of his chest, dizziness and lightheadedness discomfort to both arms that passes without intervention and shortness of breath when this occurs. Notes this is intermittent and none currently. Notes he is felt better since decreasing caffeine intake. Notes he was drinking 2 pots of coffee per day, has decreased down to 1. Notes also drinking caffeinated beverages during the day. Eats fast food routinely and smokes. Notes he feels better when cutting back on all of these things. Notes he checks his blood pressure at home when not feeling well and systolic blood pressures have had readings of 140-180. Currently without symptoms. No reported limitations of walking a flat surface or taking stairs, no report of inability to complete daily activities. Review of Systems Constitutional: Negative. Cardiovascular: Positive for palpitations. Neurological: Positive for dizziness and light-headedness. Objective BP 122/82 Pulse 80 Resp 16 Ht 190.5 cm (6' 3 ) Wt 79.8 kg (176 lb) SpO2 99% BMI 22.00 kg/m? Physical Exam Vitals and nursing note reviewed. Constitutional: Appearance: Normal appearance. HENT: Head: Normocephalic and atraumatic. Eyes: Conjunctiva/sclera: Conjunctivae normal. Neck: Thyroid: No thyromegaly. Vascular: Normal carotid pulses. No JVD. Cardiovascular: Rate and Rhythm: Normal rate and regular rhythm. Pulses: Carotid pulses are 2+ on the right side and 2+ on the left side. Radial pulses are 2+ on the right side and 2+ on the left side. Heart sounds: Normal heart sounds. Pulmonary: Effort: Pulmonary effort is normal. Breath sounds: Normal breath sounds. Abdominal: General: Bowel sounds are normal. Palpations: Abdomen is soft. Musculoskeletal: Right lower leg: No edema. Skin: General: Skin is warm and dry. Neurological: General: No focal deficit present. Mental Status: He is alert and oriented to person, place, and time. ALLERGIES No Known Allergies MEDICATIONS nicotine (NICODERM) 21 mg/24 hr Apply 1 Patch as directed every 24 hours. x 6 weeks then start 14 mg patch. Do not smoke when wearing patch nicotine (NICODERM) 14 mg/24 hr Apply 1 Patch as directed every 24 hours for 14 days. x 2 weeks then start 7 mg patch. Do not smoke when wearing patch nicotine (NICODERM) 7 mg/24 hr Apply 1 Patch as directed every 24 hours. Do not smoke when wearing patch albuterol sulfate 90 mcg/actuation breath activated powder inhaler EVERY 4 HOURS NEEDED PAST MEDICAL HISTORY Diagnosis Date - NEGATIVE HISTORY OF PAST SURGICAL HISTORY Procedure Laterality Date - NONE Social History Tobacco Use - Smoking status: Current Every Day Smoker Packs/day: 1.00 Years: 14.00 Pack years: 14.00 Types: Cigarettes Start date: 08/11/2006 - Smokeless tobacco: Never Used Substance Use Topics - Alcohol use: Yes Comment: occasionally - Drug use: Never FAMILY HISTORY Problem Relation Age of Onset - No Known Problems Mother - Cancer Father - Cancer Maternal Grandmother - Cancer Paternal Grandmother ASSESSMENT/PLAN: 1. Palpitations - ICD9: 785.1, ICD10: R00.2 (primary diagnosis) Currently without symptoms. Notes drinking excessive amounts of caffeinated beverages and smoking along with fast food, has felt improved since reducing or discontinuing these. Recommend labs today, consult cardiology. - CBC + DIFF - COMP METABOLIC PANEL - TSH BLD - CONSULT TO CARDIOLOGY - LIPID PANEL BASIC 2. Encounter for immunization - ICD9: V03.89, ICD10: Z23 3. Special screening examination for viral disease - ICD9: V73.99, ICD10: Z11.59 - HEP C AB IA W/CONF SCRN 4. Screening for HIV (human immunodeficiency virus) - ICD9: V73.89, ICD10: Z11.4 - HIV 1 2 COMBO(AG/AB),WITH REFLEX TO DIFFERENTIATION 5. Need for COVID-19 vaccine - ICD9: V04.89, ICD10: Z23 - [employer] COVID-19 VACCINE, AGE 12+ YR (CHAVIS TOP) 6. Smoker - ICD9: 305.1, ICD10: F17.200 cessation endorsed. He is considering using nicotine patches. Try to decrease or discontinue caffeine intake in coffee (more content not included)... [facility] 08-11-2021 Instructions Simona Beltran APRN.CNS - 08/11/2021 9:34 AM EDT Try to decrease or discontinue caffeine intake in coffee and soda Try to quit smoking. Avoid fast foods. documented in this encounter [facility] 08-11-2021 History of Presen t illness Narrative SUBJECTIVE: COVID-19 VACCINE(1) Never done PNEUMOCOCCAL(1 - PCV) Never done HEPATITIS C SCREENING Never done HIV SCREENING Never done HPI Jose Morales is a 35 year old male. PMH significant for ACTIVE PROBLEM LIST Non-Cardiac Chest Pain Epigastric Pain Presents today to establish care with [facility] PCP. Previous PCP: states none, can't recall who he has seen ER/Hospitalization: [facility] ER 2020 Outside records: none He reports not consistently seeing any provider. Has gone to [facility] emergency department for palpitations and work-up was negative per his report. Notes occasionally not feeling well at home, feeling palpitations that feel like a rapid fluttering in the left side of his chest, dizziness and lightheadedness discomfort to both arms that passes without intervention and shortness of breath when this occurs. Notes this is intermittent and none currently. Notes he is felt better since decreasing caffeine intake. Notes he was drinking 2 pots of coffee per day, has decreased down to 1. Notes also drinking caffeinated beverages during the day. Eats fast food routinely and smokes. Notes he feels better when cutting back on all of these things. Notes he checks his blood pressure at home when not feeling well and systolic blood pressures have had readings of 140-180. Currently without symptoms. No reported limitations of walking a flat surface or taking stairs, no report of inability to complete daily activities. Review of Systems Constitutional: Negative. Cardiovascular: Positive for palpitations. Neurological: Positive for dizziness and light-headedness. Objective BP 122/82 Pulse 80 Resp 16 Ht 190.5 cm (6' 3 ) Wt 79.8 kg (176 lb) SpO2 99% BMI 22.00 kg/m Physical Exam Vitals and nursing note reviewed. Constitutional: Appearance: Normal appearance. HENT: Head: Normocephalic and atraumatic. Eyes: Conjunctiva/sclera: Conjunctivae normal. Neck: Thyroid: No thyromegaly. Vascular: Normal carotid pulses. No JVD. Cardiovascular: Rate and Rhythm: Normal rate and regular rhythm. Pulses: Carotid pulses are 2+ on the right side and 2+ on the left side. Radial pulses are 2+ on the right side and 2+ on the left side. Heart sounds: Normal heart sounds. Pulmonary: Effort: Pulmonary effort is normal. Breath sounds: Normal breath sounds. Abdominal: General: Bowel sounds are normal. Palpations: Abdomen is soft. Musculoskeletal: Right lower leg: No edema. Skin: General: Skin is warm and dry. Neurological: General: No focal deficit present. Mental Status: He is alert and oriented to person, place, and time. ALLERGIES No Known Allergies MEDICATIONS nicotine (NICODERM) 21 mg/24 hr Apply 1 Patch as directed every 24 hours. x 6 weeks then start 14 mg patch. Do not smoke when wearing patch nicotine (NICODERM) 14 mg/24 hr Apply 1 Patch as directed every 24 hours for 14 days. x 2 weeks then start 7 mg patch. Do not smoke when wearing patch nicotine (NICODERM) 7 mg/24 hr Apply 1 Patch as directed every 24 hours. Do not smoke when wearing patch albuterol sulfate 90 mcg/actuation breath activated powder inhaler EVERY 4 HOURS NEEDED PAST MEDICAL HISTORY Diagnosis Date NEGATIVE HISTORY OF PAST SURGICAL HISTORY Procedure Laterality Date NONE Social History Tobacco Use Smoking status: Current Every Day Smoker Packs/day: 1.00 Years: 14.00 Pack years: 14.00 Types: Cigarettes Start date: 08/11/2006 Smokeless tobacco: Never Used Substance Use Topics Alcohol use: Yes Comment: occasionally Drug use: Never FAMILY HISTORY Problem Relation Age of Onset No Known Problems Mother Cancer Father Cancer Maternal Grandmother Cancer Paternal Grandmother ASSESSMENT/PLAN: 1. Palpitations - ICD9: 785.1, ICD10: R00.2 (primary diagnosis) Currently without symptoms. Notes drinking excessive amounts of caffeinated beverages and smoking along with fast food, has felt improved since reducing or discontinuing these. Recommend labs today, consult cardiology. - CBC + DIFF - COMP METABOLIC PANEL - TSH BLD - CONSULT TO CARDIOLOGY - LIPID PANEL BASIC 2. Encounter for immunization - ICD9: V03.89, ICD10: Z23 3. Special screening examination for viral disease - ICD9: V73.99, ICD10: Z11.59 - HEP C AB IA W/CONF SCRN 4. Screening for HIV (human immunodeficiency virus) - ICD9: V73.89, ICD10: Z11.4 - HIV 1 2 COMBO(AG/AB),WITH REFLEX TO DIFFERENTIATION 5. Need for COVID-19 vaccine - ICD9: V04.89, ICD10: Z23 - [employer] COVID-19 VACCINE, AGE 12+ YR (CHAVIS TOP) 6. Smoker - ICD9: 305.1, ICD10: F17.200 cessation endorsed. He is considering using nicotine patches. Try to decrease or discontinue caffeine intake in coffee and soda Try to quit smoking. Avoid fast foods. labs today 1-2 mo recheck palpitations, smoking 6-[address] Ayan Beltran APRN.CNS Medical Decision Making: Problems: Moderate: New problem with uncertain prognosis Data: Unique test(s) ordered: 3+ Risk: Moderate: Drug management Medical Decision Making Level: 4 - Moderate documented in this encounter [facility] Diagnosis Palpitations- Primary Smoker Tobacco use disorder [facility] Diagnosis Palpitations- Primary Non-cardiac chest pain Other chest pain Tobacco abuse Tobacco use disorder documented in this encounter [facility] for referral (narrative)* Outpatient Procedure (Routine) - Closed Specialty Diagnoses / Procedures Referred By Du pascual Referred To Contact [facility] Diagnoses Palpitations Procedures ECG COMPLETE ECG ROUTINE ECG W/LEAST 12 LDS W/I&R Simona Beltran APRN.CNS [address] [place] [address] [address] Referral ID Status Reason Start Date Expiration Date V isits Requested Visits Authorized [id number] Closed Auto-Generate d Referral 10/11/2021 10/11/2022 1 1 [facility] for referral (narrative)* Outpatient Procedure (Routine) - Additional Clinical Info Needed Specialty Diagnoses / Procedures Referred By Du pascual Referred To Contact [facility] Diagnoses Palpitations Non-cardiac chest pain Procedures ECHO ECHO TTHRC R-T 2D W/WOM-MODE COMPL SPEC&COLR D Carlos Tamayo MD [address] [place] [id number] [facility] [id number] [place] [address] Referral ID Status Reason Start Date Expiration Date Visits Requested Visits Authorized [id number] Additional Clinical Info Needed Auto-Generat ed Referral 01/09/2022 01/09/2023 1 1 [facility] Summary Purpose Family History No Family History Records FoundNo Family History Records Found Advance Directives No Advanced Directives Records FoundNo Advanced Directives Records Found Reason for Referral Specialty Diagnoses / Procedures Referred By Contac t Referred To Contact Cardiology Diagnoses Palpitations Procedures CONSULT TO CARDIOLOGY OFFICE/OUTPATIENT [facility] MDM 60-74 MINUTES Simona Beltran, POTATO GRADER.COOL ROOFING INSTALLER [address] [place] [address] Referral ID Status Reason Start Date Expiration Date Visits Requested Visits Authorized [id number] Authorized PCP Requested Referral 08/11/2021 08/11/2022 1 1 Additional Source Comments (unrecognized sect ion and content) No Status Records FoundNo Status Records Found INFORMATION SOURCE (unrecogn ized section and content) DATE CREATED AUTHOR AUTHOR'S ORGANIZ ATION 01/11/2022 [facility] Source Comments (unrecognize d section and content) In the event this informatio n is protected by the Federal Confidentiality of Alcohol and Drug Abuse Patient Records regulations: The Federal rules restrict any use of the information to criminally investigate or prosecute any alcohol or drug abuse patient.[facility] the event this information is protected by the Federal Confidentiality of Alcohol and Drug Abuse Patient Records regulations: The Federal rules restrict any use of the information to criminally investigate or prosecute any alcohol or drug abuse patient.[facility] the event this information is protected by the Federal Confidentiality of Alcohol and Drug Abuse Patient Records regulations: The Federal rules restrict any use of the information to criminally investigate or prosecute any alcohol or drug abuse patient.[facility] event this information is protected by the Federal Confidentiality of Alcohol and Drug Abuse Patient Records regulations: The Federal rules restrict any use of the information to criminally investigate or prosecute any alcohol or drug abuse patient.[facility] the event this information is protected by the Federal Confidentiality of Alcohol and Drug Abuse Patient Records regulations: The Federal rules restrict any use of the information to criminally investigate or prosecute any alcohol or drug abuse patient.[facility] Reason for Visit (unrecogniz ed section and content) Reason Comments Results, Lab Reason Comments 2 month f/u Reason Comments Results Specialty Diagnoses / Procedures Referred By Contranjan t Referred To Contact Cardiology Diagnoses Palpitations Procedures CONSULT TO CARDIOLOGY OFFICE/OUTPATIENT NEW HIGH MDM 60-74 MINUTES Simona Beltran, [employer]ING INST[employer] [address] [place] [address] Referral ID Status Reason Start Date Expiration Date V isits Requested Visits Authorized [id number] Closed PCP Requested Referral 08/11/2021 08/11/2022 1 1 Care Teams (unrecognized sec tion and content) Paper Colorer Relationship Specialty Start Date End Date Pravin Zuniga MD [address] [place], [place] [id number] PCP - General Internal Medicine 08/11/21 Paper Colorer Relationship Specialty Start Date End Date Pravin Zuniga MD [address] [place] [address] PCP - General Internal Medicine 08/11/21 Paper Colorer Relationship Specialty Start Date End Date Pravin Zuniga MD [address] [place], [place] [id number] PCP - General Internal Medicine 08/11/21 FOR RECORDS PERTAINING TO PATIENTS WHO ARE OR HAVE BEEN ENROLLED IN A CHEMICAL DEPENDENCY/SUBSTANCEABUSE PROGRAM, SOME INFORMATION MAY BE OMITTED. This clinical summary was aggregated from multiple sources. Caution should be exercised in using it in the provision of clinical care. This summary normalizes information from multiple sources, and as a consequence, information in this document may materially change the coding, format and clinical context of patient data. In addition, data may be omitted in some cases. CLINICAL DECISIONS SHOULD BE BASED ON THE PRIMARY CLINICAL RECORDS. [facility] [employer] provides no warranty or guarantee of the accuracy or completeness of information in this document.
== END 2023-03-21 18:48 | disposition home or self-care (01) ==
PROVIDERS: Emergency Provider Emergency Medicine; Visit Provider Emergency Medicine
DX: S93.402A Sprain of unspecified ligament of left ankle, initial encounter (principal); S91.012A Laceration without foreign body, left ankle, initial encounter; V18.0XXA Pedal cycle driver injured in noncollision transport accident in nontraffic accident, initial encounter; Y93.55 Activity, bike riding; Y99.8 Other external cause status; F17.210 Nicotine dependence, cigarettes, uncomplicated
CPT/HCPCS: 73610; 99282

== ENCOUNTER 2025-02-03 12:31 | Emergency (ER) | payer SELFPAY ==
[2025-02-03 12:32] VITALS: BP 124/90; PULSE 89; RESP 18; TEMP 36; O2SAT 99; BMI 28.6
--- NOTE | 2025-02-03 13:12 | ED.VIS.BACK ---
HPI History of Present Illness Chief Complaint: Back Informant: patient Onset/Context/Timing Onset: Yesterday Context: Sudden Onset Injury: twisting Timing: Continuous Quality: Sharp Location: Thoracic, Lumbar and - (Right side of his back from near his shoulder blade down the right side of his spine to his hip. Not the spine itself but the right lateral soft tissues.) Current Severity: Moderate Maximum Severity: Moderate Worsened by: improves with Movement Relieved by: Nothing Associated Symptoms Associated Symptoms: Negative for Numbness, Radiation to Right Leg, Radiation to Left Leg, Fever, Abdominal Pain, Dysuria, Unable to Ambulate, Unable to Transfer, Urinary Retention, Urinary Incontinence, Constipation or Fecal Incontinence Narrative Narrative: Healthy 39-year-old male no prior back history or back surgery. States yesterday he was walking, turned to the right and felt pain down the right lateral side of his back. No weakness or numbness. This occurred yesterday. No fall or trauma. Complaining of discomfort still. Worse with movement. Prior similar symptoms: No Recent Illness/Hospitalization: No PFSH PFSH Medical History no medical history no medical history Home Medications ?Medication ?Instructions ?Recorded ?Last Taken ?Type desonide 0.05 % topical cream 1 applic topical TID PRN skin 09/17/22 Unknown Rx irritation #60 grams sulfamethoxazole 800 1 tab PO BID 10 days #20 tabs 09/17/22 Unknown Rx mg-trimethoprim 160 mg tablet (Bactrim DS) metaxalone 800 mg tablet 800 mg PO TID 7 days #21 tabs 02/03/25 Unknown Rx Allergy/AdvReac Type Severity Reaction Status Date / Time No Known Allergies Allergy Verified 02/03/25 12:33 Family History no significant family his Surgical History no surgical history Social History Smoking Status: Heavy Smoker (>10/day) ROS ROS ED ROS Narrative Denies recent illness. Constitutional Constitutional ED: Denies chills or fever(s) Eyes Eyes: Denies blurry vision ENT ENT ED: Denies ear pain, rhinorrhea or sore throat Cardiovascular Cardiovascular: Denies chest pain Respiratory/Chest Respiratory/Chest: Denies dyspnea or dyspnea on exertion Gastrointestinal Gastrointestinal: Denies abdominal pain Genitourinary Genitourinary ED: Denies dysuria or hematuria Musculoskeletal Musculoskeletal: Reports back pain; Denies arthralgias or neck pain Integumentary Denies abscess or Abrasions Neurologic Neurologic: Denies headache(s) Psychiatric Psychiatric: Denies anxiety or depression Endocrine Endocrinology: Denies cold intolerance Hematologic/Lymphatic Hematologic/Lymphatic: Denies easy bleeding Allergic/Immunologic Allergic/Immunologic ED: Denies mouth swelling, tongue swelling or urticaria EXAM Physical Exam Narrative Exam Narrative: 39 male sitting upright in bed vital signs stable afebrile. No acute distress. H EENT exam pupils round react light. Moist mucous membranes. Neck nontender no JVD. No lymphadenopathy. Nontender. Full range of motion. Back no spinal tenderness. The right lateral back lateral to his spine there is soft tissue tenderness. No ecchymosis or bruising. No subcu air or crepitance. No discoloration or bruising. Lungs clear to auscultation bilaterally. Heart regular rhythm no murmur. Rate about 90. Chest wall ribs nontender. Abdomen soft nontender. No peritoneal signs. Moving all 4 extremities. Normal strength. Normal range of motion. 5 out of 5 turnaround planner strength. Dorsi plantarflexion intact. No cauda equina. No saddle anesthesia. Neurologically is awake alert. Answer questions following commands. No focal motor or sensory deficits. Exam consistent with back strain with spasm. Const Vital Signs: 02/03/25 12:32 Temperature 96.8 F L Temperature Source Temporal Pulse Rate 89 Respiratory Rate 18 Blood Pressure 124/90 H Blood Pressure Mean 101 Pulse Ox 99 Oxygen Delivery Method Room Air MDM MDM MDM Narrative Medical decision making narrative: 39-year-old male history and exam consistent with back strain and spasm. To be placed on Skelaxin. 3 times a day for a week. Hot shower, warm bath and massage. Motrin for pain and inflammation. Follow-up as needed. He is comfortable with the plan. He does not need any imaging or lab work. Discharge Plan Triage Chief Complaint: Back ED Provider: Froy Stover Dx/Rx/DC Orders Clinical Impression: Back strain, Back muscle spasm Instructions: ED Back Spasm, No Trauma, ED Back Sprain/Strain Prescriptions: New metaxalone 800 mg tablet 800 mg PO TID 7 Days Qty: 21 0RF Rx Instructions: Generic is okay. No Action sulfamethoxazole-trimethoprim [Bactrim DS] 800-160 mg tablet 1 tab PO BID 10 Days Qty: 20 0RF desonide 0.05 % cream 1 applic topical TID PRN (Reason: skin irritation) Qty: 60 0RF Primary Care Provider: Care Physician,No Primary Referrals: Woo Bedolla MD [Med Staff - [employer] Professional, Family Practice] - 1 Week if not improving Care Physician,No Primary [Primary Care Provider, Medical] Activity Restrictions/Additional Instructions: Hot shower, warm bath, hot tub and massage. Motrin for pain and inflammation and Tylenol for pain. The muscle relaxant Skelaxin 1 pill 3 times a day till gone. A muscle accident usually takes about 3 days to kick in and start feeling a lot better. This should progressively get better. Print Language: Lithuanian Disposition Disposition: Home, Self Care Discharge Date/Time: 02/03/25 13:24
[2025-02-03 13:21] VITALS: BP 121/71; PULSE 91; RESP 14; TEMP 36.1; O2SAT 100
== END 2025-02-03 13:24 | disposition home or self-care (01) ==
LOC: ED 13:21
PROVIDERS: Emergency Provider Emergency Medicine; Visit Provider Emergency Medicine
DX: S39.012A Strain of muscle, fascia and tendon of lower back, initial encounter (principal); M62.830 Muscle spasm of back; F17.200 Nicotine dependence, unspecified, uncomplicated; X58.XXXA Exposure to other specified factors, initial encounter
CPT/HCPCS: 99282